=== PATIENT | male | born 1975 | race Caucasian/White ===

== ENCOUNTER 2017-02-22 21:10 | Emergency (ER) | payer MEDICAID ==
[2017-02-22] MEDS ORDERED: ZIPRASIDONE MESYLATE INJ/PF 20 MG SDV IM ONE (21:25)
[2017-02-22] MEDS ORDERED: DIPHENHYDRAMINE HCL 50 MG/ML VIAL IM ONE (21:26)
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
[2017-02-22] MEDS ORDERED: LORAZEPAM INJ 2 MG/1 ML VIAL ONE (21:44)
[2017-02-22 22:01] LABS: APPEARANCE,URINE CLEAR; BILIRUBIN,URINE NEGATIVE (NEGATIVE); GLUCOSE, URINE NEGATIVE (NEGATIVE); KETONES,URINE NEGATIVE (NEGATIVE); LEUKOCYTE ESTERASE,URINE NEGATIVE (NEGATIVE); NITRITE,URINE NEGATIVE (NEGATIVE); PROTEIN,URINE NEGATIVE (NEGATIVE); URINE SPECIFIC GRAVITY 1.002; UROBILINOGEN,URINE NEGATIVE mg/dL (<2.0)
[2017-02-22 22:19] LABS: URINE BARBITURATES SCREEN NEGATIVE; URINE METHADONE SCREEN NEGATIVE; URINE OPIATES LOW NEGATIVE; URINE PHENCYCLIDINE SCREEN NEGATIVE
[2017-02-22 22:40] LABS: ABSOLUTE EOSINOPHILS # (AUTO) 0.1 10^3/uL (0.0-0.6); ABSOLUTE LYMPHOCYTES (AUTO) 1.8 10^3/uL (0.5-4.7); ABSOLUTE MONOCYTES (AUTO) 0.8 10^3/uL (0.1-1.4); ABSOLUTE NEUT (AUTO) 4.2 10^3/uL (1.7-8.2); BASOPHILS % (AUTO) 0.6 % (0-2); EOSINOPHILS % (AUTO) 1.1 % (0-6); HEMATOCRIT 45.4 % (37.9-51.0); HEMOGLOBIN 15.8 g/dL (13.5-17.0); LYMPHOCYTES % (AUTO) 26.5 % (13-45); MEAN CORPUSCULAR HEMOGLOBIN 31.2 pg (27.0-33.4); MEAN CORPUSCULAR HGB CONC 34.8 g/dL (32.0-36.0); MEAN CORPUSCULAR VOLUME 90 fl (80-97); MONOCYTES % (AUTO) 10.8 % (3-13); RED BLOOD COUNT 5.06 10^6/uL (4.35-5.55); RED CELL DISTRIBUTION WIDTH 13.3 % (11.5-14.0)
[2017-02-22 22:54] LABS: ALANINE AMINOTRANSFERASE 35 U/L (21-72); ALBUMIN 4.8 g/dL (3.5-5.0); ALCOHOL 100 mg/dL (NONE DETECTED); ALKALINE PHOSPHATASE 72 U/L (38-126); ANION GAP 18 (5-19); ASPARTATE AMINO TRANSFERASE 32 U/L (17-59); BILIRUBIN,DIRECT 0.3 mg/dL (0.0-0.4); BILIRUBIN,TOTAL 0.8 mg/dL (0.2-1.3); BLOOD UREA NITROGEN 7 mg/dL (7-20); CALCIUM 9.7 mg/dL (8.4-10.2); CARBON DIOXIDE 21 mmol/L (22-30); CHLORIDE 108 mmol/L (98-107); CREATININE RESULT 0.78 mg/dL (0.52-1.25); GLUCOSE 88 mg/dL (75-110); POTASSIUM 3.6 mmol/L (3.6-5.0); SODIUM 147.2 mmol/L (137-145); TOTAL PROTEIN 7.8 g/dL (6.3-8.2)
--- NOTE | 2017-02-23 07:49 | EKG REPORT ---
SEVERITY:- BORDERLINE ECG - SINUS RHYTHM LEFT AXIS DEVIATION POOR R PROGRESSION ANTERIOR LEADS : Confirmed by: Juve Arteaga MD 23-Feb-2017 07:48:51
--- NOTE | 2017-02-23 10:43 | ER Document Report ---
Doctor's Note Notes: 02/23/17 10:43 As the rounding physician this AM, I assessed the patient's labs, vitals, and records. No concerning findings this morning. Patient denies any acute complaints. Patient is cleared for disposition by psychiatry
[2017-02-23] MEDS ORDERED: LORAZEPAM 1 MG TABLET PO ONE (12:33)
[2017-02-23] MEDS ORDERED: DIPHENHYDRAMINE HCL 50 MG/ML VIAL IM ONE (13:46)
[2017-02-23] MEDS ORDERED: HALOPERIDOL LACTATE INJ 5 MG/1 ML VIAL IM ONE (13:46)
[2017-02-23] MEDS ORDERED: LORAZEPAM INJ 2 MG/1 ML VIAL IM ONE (13:46)
[2017-02-23 16:12] VITALS: BP 109/85
== END 2017-02-23 18:41 | disposition home or self-care (01) ==
LOC: EEVIPCON 21:10 → ER 21:10
DX: F29 Unspecified psychosis not due to a substance or known physiological condition (principal); Z78.1 Physical restraint status; R45.1 Restlessness and agitation
CPT/HCPCS: 93005; 99284; 96372; 96374; 36415; 80307 ×4; 85025; 80053; 81001; 93010; J1200 ×2; J1630; J2060 ×2; J3486

== ENCOUNTER 2017-02-27 15:43 | Emergency (ER) | payer MEDICAID, OTHER ==
[2017-02-27] MEDS ORDERED: LORAZEPAM INJ 2 MG/1 ML VIAL IM ONE (16:17)
[2017-02-27 16:25] LABS: ABSOLUTE EOSINOPHILS # (AUTO) 0.1 10^3/uL (0.0-0.6); ABSOLUTE LYMPHOCYTES (AUTO) 2.2 10^3/uL (0.5-4.7); ABSOLUTE MONOCYTES (AUTO) 0.7 10^3/uL (0.1-1.4); ABSOLUTE NEUT (AUTO) 5.4 10^3/uL (1.7-8.2); BASOPHILS % (AUTO) 0.4 % (0-2); EOSINOPHILS % (AUTO) 1.4 % (0-6); HEMATOCRIT 45.6 % (37.9-51.0); HEMOGLOBIN 15.6 g/dL (13.5-17.0); HGB HCT DIFFERENCE 1.2; LYMPHOCYTES % (AUTO) 26.1 % (13-45); MEAN CORPUSCULAR HEMOGLOBIN 31.2 pg (27.0-33.4); MEAN CORPUSCULAR HGB CONC 34.2 g/dL (32.0-36.0); MEAN CORPUSCULAR VOLUME 91 fl (80-97); MONOCYTES % (AUTO) 7.9 % (3-13); RED BLOOD COUNT 5.01 10^6/uL (4.35-5.55); RED CELL DISTRIBUTION WIDTH 13.6 % (11.5-14.0); SEGMENTED NEUTROPHILS % (AUTO) 64.2 % (42-78); WHITE BLOOD COUNT 8.4 10^3/uL (4.0-10.5)
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
[2017-02-27 16:45] LABS: ALANINE AMINOTRANSFERASE 30 U/L (21-72); ALBUMIN 4.7 g/dL (3.5-5.0); ALCOHOL 170 mg/dL (NONE DETECTED); ALKALINE PHOSPHATASE 80 U/L (38-126); ANION GAP 17 (5-19); ASPARTATE AMINO TRANSFERASE 32 U/L (17-59); BILIRUBIN,DIRECT 0.5 mg/dL (0.0-0.4); BILIRUBIN,TOTAL 1.1 mg/dL (0.2-1.3); BLOOD UREA NITROGEN 11 mg/dL (7-20); CALCIUM 9.6 mg/dL (8.4-10.2); CARBON DIOXIDE 21 mmol/L (22-30); CHLORIDE 108 mmol/L (98-107); CREATININE RESULT 0.81 mg/dL (0.52-1.25); GLUCOSE 92 mg/dL (75-110); POTASSIUM 4.2 mmol/L (3.6-5.0); SODIUM 145.5 mmol/L (137-145); TOTAL PROTEIN 7.7 g/dL (6.3-8.2)
[2017-02-27 17:40] LABS: APPEARANCE,URINE CLEAR; BILIRUBIN,URINE NEGATIVE (NEGATIVE); GLUCOSE, URINE NEGATIVE (NEGATIVE); KETONES,URINE NEGATIVE (NEGATIVE); LEUKOCYTE ESTERASE,URINE NEGATIVE (NEGATIVE); NITRITE,URINE NEGATIVE (NEGATIVE); PROTEIN,URINE NEGATIVE (NEGATIVE); URINE SPECIFIC GRAVITY 1.008; UROBILINOGEN,URINE NEGATIVE mg/dL (<2.0)
[2017-02-27 17:57] LABS: URINE BARBITURATES SCREEN NEGATIVE; URINE METHADONE SCREEN NEGATIVE; URINE OPIATES LOW NEGATIVE; URINE PHENCYCLIDINE SCREEN NEGATIVE
[2017-02-27] MEDS ORDERED: (PENDING PHARMACY ID) (Naproxen [Naproxen] 500 MG) PO PRN (18:17)
[2017-02-27] MEDS ORDERED: NAPROXEN 250 MG TABLET PO PRN (18:25)
[2017-02-27] MEDS ORDERED: LORAZEPAM INJ 2 MG/1 ML VIAL IV ONE (18:43)
[2017-02-27] MEDS: GABAPENTIN 300 MG CAPSULE PO SCH (21:42)
[2017-02-27] MEDS: BENZTROPINE MESYLATE 1 MG TABLET PO SCH (21:42)
[2017-02-27] MEDS: LANSOPRAZOLE 15 MG TAB.RAP.DR PO SCH (21:43)
[2017-02-27] MEDS: FAMOTIDINE 20 MG TABLET PO SCH (21:43)
[2017-02-27] MEDS: CHLORPROMAZINE HCL 50 MG TABLET PO SCH (21:43)
[2017-02-27] MEDS ORDERED: (PENDING PHARMACY ID) (Ranitidine Hcl [Zantac 150 Mg Tablet] 150 MG) PO SCH (22:00)
--- NOTE | 2017-02-27 23:36 | EKG REPORT ---
SEVERITY:- ABNORMAL ECG - SINUS TACHYCARDIA LEFT ANTERIOR FASCICULAR BLOCK : Confirmed by: Torrie Campbell 27-Feb-2017 23:35:04
[2017-02-28] MEDS: CHLORPROMAZINE HCL 50 MG TABLET PO SCH ×3 (06:55→22:19)
[2017-02-28] MEDS: GABAPENTIN 300 MG CAPSULE PO SCH ×3 (06:55→22:19)
[2017-02-28] MEDS ORDERED: LAMOTRIGINE 100 MG TABLET PO SCH (10:00)
[2017-02-28] MEDS ORDERED: (PENDING PHARMACY ID) (Benztropine Mesylate [Benztropine Mesylate 2 Mg Tablet] 2 MG) PO SCH (10:00)
[2017-02-28] MEDS ORDERED: (PENDING PHARMACY ID) (Lamotrigine [Lamictal] 150 MG) PO SCH (10:00)
[2017-02-28] MEDS: FAMOTIDINE 20 MG TABLET PO SCH ×2 (11:09→22:19)
[2017-02-28] MEDS: LANSOPRAZOLE 15 MG TAB.RAP.DR PO SCH ×2 (11:09→22:18)
[2017-02-28] MEDS: BENZTROPINE MESYLATE 1 MG TABLET PO SCH ×2 (11:09→22:18)
--- NOTE | 2017-02-28 16:44 | PSYCHOLOGICAL NOTE ---
Psych Note - Psych Note Psych Note: 41-year-old male who presents by EMS secondary to altered mental status. Patient does have a history of seizures. Patient was recently seen and evaluated here secondary to possible psychosis and medication noncompliance and was discharged home with follow-up with the act team and [facility]. Patient is in restraints upon arrival secondary to combativeness. Patient does admit to drinking alcohol today. He denies any drug use. Patient does not remember the full events of today. Patient denies any headache, neck pain, chest pain, abdominal pain, nausea or vomiting. Patient believes "I think I had a seizure". Patient currently demonstrating that he is in an altered mental status and has been put into 4 point restraints. Mood is irritable with labile affect. Patient denies suicidal and homicidal ideation but states he needs medication or he will kill people. Patient denies auditory and visual hallucinations; patient is not demonstrating behaviour what would be congruent to responding to internal stimuli. Persecutory delusions are noted. Thought process is disorganized. Eye contact was fair. Intellectual abilities appear to be within average range. Attention and concentration is poor. Insight, judgment, and impulse control is poor. he was clinician notes that patient does get out of control but however when clinician reminds him to calm down for evaluation of be over he immediately complies. 298.9 (F29) Unspecified psychosis Impressions/plan: Patient is recommended to continue under IVC. Patient is demonstrating persecutory delusions and inability to control outbursts. Patient is currently in 4-point restraints. Patient will be reevaluated. Dr. Steel was consulted on the Management of this patient attending physician is in agreement with recommendations and disposition.
--- NOTE | 2017-02-28 16:54 | PSYCHOLOGICAL NOTE ---
Psych Note - Psych Note Psych Note: 41-year-old male who presents by EMS secondary to altered mental status. Patient does have a history of seizures. Patient was recently seen and evaluated here secondary to possible psychosis and medication noncompliance and was discharged home with follow-up with the act team and [facility]. Patient is in restraints upon arrival secondary to combativeness. Patient does admit to drinking alcohol today. He denies any drug use. Patient does not remember the full events of today. Patient denies any headache, neck pain, chest pain, abdominal pain, nausea or vomiting. Patient believes "I think I had a seizure". Patient is unwilling to engage with clinician and is verbally combative. Patient is irritable and states he wants to be discharged. Patient does have [facility] act team and had been off his psychiatric medications. Patient states that he has been working with [facility] to get housing and to get back into treatment. He disclosed he has been unable to get his medications because of appointment difficulties. clinician attempted to call [facility] act logistics team leader Guy left message Patient is alert and orientated to person, place, time and circumstance. Mood is irritable with labile affect. Patient denies suicidal and homicidal ideation. Patient denies auditory and visual hallucinations; patient is not demonstrating behaviour what would be congruent to responding to internal stimuli. No delusions are noted. Thought process is organized and linear. Eye contact was fair. Intellectual abilities appear to be within average range. Attention and concentration is fair. Insight, judgment, and impulse control is poor 298.9 (F29) Unspecified psychosis Impressions/plan: Patient is recommended for rescind of IVC is considered psychiatrically cleared for discharge. Patient does not meet IVC criteria per [place] GS 122C. Patient is no longer demonstrating being in an altered mental status. Patient is not verbalizing any delusions previously noted. Patient has been restarted on his psychiatric medications. Patient is having difficulty getting into see psychiatry through outpatient services however patient is set up with higher level of care through act team [facility]. Dr. Steel was consulted on the Management of this patient attending physician is in agreement with recommendations and disposition.
--- NOTE | 2017-02-28 18:22 | ER Document Report ---
Doctor's Note Notes: 02/28/17 18:21 [address] to go, will have a home tomorrow. Quite agitated by the idea of being discharged tonight as he has nowhere to live. This is increasing stress and causing him to become somewhat unstable again. I do not feel the patient will be safe for discharge this evening as he has no live in no way to fill his prescriptions until tomorrow morning. Patient will continue to be observed in the emergency department overnight and discharged tomorrow. I have written for 1 week refills on his medications.
[2017-03-01] MEDS: GABAPENTIN 300 MG CAPSULE PO SCH (06:00)
[2017-03-01] MEDS: CHLORPROMAZINE HCL 50 MG TABLET PO SCH (06:01)
[2017-03-01 08:33] VITALS: BP 128/81
== END 2017-03-01 08:25 | disposition home or self-care (01) ==
LOC: ER 15:43 → EEVIPCON 15:43 → ER 03-01 08:25
DX: R44.3 Hallucinations, unspecified (principal); R00.0 Tachycardia, unspecified; R45.1 Restlessness and agitation; R46.89 Other symptoms and signs involving appearance and behavior; F43.9 Reaction to severe stress, unspecified; I44.4 Left anterior fascicular block; Z88.8 Allergy status to other drugs, medicaments and biological substances
CPT/HCPCS: 93005; 99291; 96372; 36415; 80307 ×4; 85025; 80076; 80048; 81001; 93010; J3490 ×6; J2060

== ENCOUNTER 2017-03-01 19:41 | Emergency (ER) | payer OTHER, MEDICAID ==
[2017-03-01] MEDS ORDERED: HALOPERIDOL LACTATE INJ 5 MG/1 ML VIAL ONE ×2 (19:48→19:49)
[2017-03-01] MEDS ORDERED: LORAZEPAM INJ 2 MG/1 ML VIAL ONE (19:48)
[2017-03-01] MEDS ORDERED: HALOPERIDOL LACTATE INJ 5 MG/1 ML VIAL IM ONE (19:49)
[2017-03-01] MEDS ORDERED: LORAZEPAM INJ 2 MG/1 ML VIAL IM ONE (19:49)
[2017-03-01] MEDS ORDERED: DIPHENHYDRAMINE HCL 50 MG/ML VIAL IM ONE (19:49)
[2017-03-01] MEDS ORDERED: DIPHENHYDRAMINE HCL 50 MG/ML VIAL ONE (19:49)
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
[2017-03-01 21:24] LABS: ABSOLUTE EOSINOPHILS # (AUTO) 0.1 10^3/uL (0.0-0.6); ABSOLUTE LYMPHOCYTES (AUTO) 1.7 10^3/uL (0.5-4.7); ABSOLUTE MONOCYTES (AUTO) 0.6 10^3/uL (0.1-1.4); ABSOLUTE NEUT (AUTO) 3.4 10^3/uL (1.7-8.2); BASOPHILS % (AUTO) 0.4 % (0-2); EOSINOPHILS % (AUTO) 2.1 % (0-6); HEMATOCRIT 42.8 % (37.9-51.0); HEMOGLOBIN 14.6 g/dL (13.5-17.0); LYMPHOCYTES % (AUTO) 29.1 % (13-45); MEAN CORPUSCULAR HEMOGLOBIN 31.1 pg (27.0-33.4); MEAN CORPUSCULAR HGB CONC 34.1 g/dL (32.0-36.0); MEAN CORPUSCULAR VOLUME 91 fl (80-97); MONOCYTES % (AUTO) 10.1 % (3-13); RED BLOOD COUNT 4.69 10^6/uL (4.35-5.55); RED CELL DISTRIBUTION WIDTH 13.7 % (11.5-14.0); SEGMENTED NEUTROPHILS % (AUTO) 58.3 % (42-78); WHITE BLOOD COUNT 5.8 10^3/uL (4.0-10.5)
[2017-03-01 21:41] LABS: ALANINE AMINOTRANSFERASE 41 U/L (21-72); ALBUMIN 4.3 g/dL (3.5-5.0); ALCOHOL 111 mg/dL (NONE DETECTED); ALKALINE PHOSPHATASE 87 U/L (38-126); ANION GAP 14 (5-19); ASPARTATE AMINO TRANSFERASE 46 U/L (17-59); BILIRUBIN,DIRECT 0.4 mg/dL (0.0-0.4); BILIRUBIN,TOTAL 0.7 mg/dL (0.2-1.3); BLOOD UREA NITROGEN 11 mg/dL (7-20); CALCIUM 9.6 mg/dL (8.4-10.2); CARBON DIOXIDE 25 mmol/L (22-30); CHLORIDE 108 mmol/L (98-107); CREATININE RESULT 0.69 mg/dL (0.52-1.25); GLUCOSE 99 mg/dL (75-110); POTASSIUM 4.2 mmol/L (3.6-5.0); SODIUM 146.6 mmol/L (137-145); TOTAL PROTEIN 7.1 g/dL (6.3-8.2)
[2017-03-02 02:23] LABS: APPEARANCE,URINE CLEAR; BILIRUBIN,URINE NEGATIVE (NEGATIVE); GLUCOSE, URINE NEGATIVE (NEGATIVE); KETONES,URINE NEGATIVE (NEGATIVE); LEUKOCYTE ESTERASE,URINE NEGATIVE (NEGATIVE); NITRITE,URINE NEGATIVE (NEGATIVE); PROTEIN,URINE NEGATIVE (NEGATIVE); URINE SPECIFIC GRAVITY 1.012; UROBILINOGEN,URINE NEGATIVE mg/dL (<2.0)
[2017-03-02 02:25] LABS: URINE BARBITURATES SCREEN NEGATIVE; URINE METHADONE SCREEN NEGATIVE; URINE OPIATES LOW NEGATIVE; URINE PHENCYCLIDINE SCREEN NEGATIVE
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
--- NOTE | 2017-03-02 09:16 | ER Document Report ---
Doctor's Note Notes: 03/02/17 09:16 As the rounding physician for our psychiatric patients, I have reviewed the chart, vitals, lab work. Patient has been examined and noted to be stable at this time . Patient is cleared by mental health as well, he will follow-up with [facility] 03/02/17 09:18 After performing a Medical Screening Examination, I estimate there is LOW risk for any life threatening mental health issues. At this time the patient looks extremely well and has not attempted severe self harm. I have reevaluated this patient multiple times and no significant life threatening changes are noted. The patient and I have discussed the diagnosis and risks, and we agree with discharging home with close follow-up with the understanding that symptoms and presentations can change. We also discussed returning to the Emergency Department immediately if new or worsening symptoms occur. We have discussed the symptoms which are most concerning (hallucinations, thoughts or actions of self harm or harm to others) that necessitate immediate return.
[2017-03-02 09:31] VITALS: BP 113/80
--- NOTE | 2017-03-02 13:05 | EKG REPORT ---
SEVERITY:- ABNORMAL ECG - SINUS TACHYCARDIA LEFT ANTERIOR FASCICULAR BLOCK ABNRM R PROG, CONSIDER ASMI OR LEAD PLACEMENT : Confirmed by: Torrie Campbell 02-Mar-2017 13:05:01
== END 2017-03-02 09:30 | disposition home or self-care (01) ==
LOC: ER 19:41
DX: F10.129 Alcohol abuse with intoxication, unspecified (principal); R46.89 Other symptoms and signs involving appearance and behavior; R45.1 Restlessness and agitation; R45.850 Homicidal ideations; R00.0 Tachycardia, unspecified; Z88.8 Allergy status to other drugs, medicaments and biological substances; F17.200 Nicotine dependence, unspecified, uncomplicated; Z59.0 Homelessness; Z78.1 Physical restraint status
CPT/HCPCS: 93005; 99285; 96372; 36415; 80307 ×4; 85025; 80053; 81001; 93010; J1200; J1630; J2060

== ENCOUNTER 2017-03-05 13:02 | Emergency (ER) | payer MEDICAID ==
[2017-03-05 13:38] LABS: ABSOLUTE EOSINOPHILS # (AUTO) 0.1 10^3/uL (0.0-0.6); ABSOLUTE LYMPHOCYTES (AUTO) 1.8 10^3/uL (0.5-4.7); ABSOLUTE MONOCYTES (AUTO) 0.8 10^3/uL (0.1-1.4); ABSOLUTE NEUT (AUTO) 4.1 10^3/uL (1.7-8.2); BASOPHILS % (AUTO) 0.5 % (0-2); EOSINOPHILS % (AUTO) 1.8 % (0-6); HEMOGLOBIN 16.1 g/dL (13.5-17.0); HGB HCT DIFFERENCE 1.3; MEAN CORPUSCULAR HEMOGLOBIN 31.3 pg (27.0-33.4); MEAN CORPUSCULAR HGB CONC 34.3 g/dL (32.0-36.0); MEAN CORPUSCULAR VOLUME 91 fl (80-97); MONOCYTES % (AUTO) 11.2 % (3-13); RED BLOOD COUNT 5.16 10^6/uL (4.35-5.55); RED CELL DISTRIBUTION WIDTH 13.4 % (11.5-14.0); SEGMENTED NEUTROPHILS % (AUTO) 60.5 % (42-78); WHITE BLOOD COUNT 6.8 10^3/uL (4.0-10.5)
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
[2017-03-05 13:50] LABS: ALANINE AMINOTRANSFERASE 47 U/L (21-72); ALBUMIN 4.4 g/dL (3.5-5.0); ALCOHOL 189 mg/dL (NONE DETECTED); ALKALINE PHOSPHATASE 78 U/L (38-126); ANION GAP 17 (5-19); ASPARTATE AMINO TRANSFERASE 36 U/L (17-59); BILIRUBIN,DIRECT 0.3 mg/dL (0.0-0.4); BILIRUBIN,TOTAL 0.8 mg/dL (0.2-1.3); BLOOD UREA NITROGEN 6 mg/dL (7-20); CALCIUM 9.3 mg/dL (8.4-10.2); CARBON DIOXIDE 21 mmol/L (22-30); CHLORIDE 106 mmol/L (98-107); CREATININE RESULT 0.77 mg/dL (0.52-1.25); GLUCOSE 94 mg/dL (75-110); SODIUM 143.9 mmol/L (137-145); TOTAL PROTEIN 7.3 g/dL (6.3-8.2)
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
[2017-03-05 14:59] VITALS: BP 116/97
--- NOTE | 2017-03-05 22:12 | EKG REPORT ---
SEVERITY:- ABNORMAL ECG - SINUS RHYTHM BORDERLINE LEFT AXIS DEVIATION ABNRM R PROG, CONSIDER ASMI OR LEAD PLACEMENT : Confirmed by: Kimberly Oliver MD 05-Mar-2017 22:11:14
== END 2017-03-05 14:55 | disposition home or self-care (01) ==
LOC: ER 13:02
DX: T50.902A Poisoning by unspecified drugs, medicaments and biological substances, intentional self-harm, initial encounter (principal); F17.200 Nicotine dependence, unspecified, uncomplicated
CPT/HCPCS: 36415; 80053; 80307; 85025; 93005; 93010; 99284

== ENCOUNTER 2017-03-07 11:59 | Emergency (ER) | payer MEDICAID ==
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
[2017-03-07] MEDS ORDERED: LAMOTRIGINE 100 MG TABLET PO ONE (12:46)
[2017-03-07 13:04] VITALS: BP 117/87
== END 2017-03-07 13:06 | disposition home or self-care (01) ==
LOC: ER 11:59
DX: M25.512 Pain in left shoulder (principal); W22.01XA Walked into wall, initial encounter; Y92.149 Unspecified place in prison as the place of occurrence of the external cause; R56.9 Unspecified convulsions; Z88.8 Allergy status to other drugs, medicaments and biological substances
CPT/HCPCS: 99283

== ENCOUNTER 2017-04-12 12:45 | Emergency (ER) | payer MEDICAID, OTHER ==
[2017-04-12 13:00] VITALS: BP 132/80
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
[2017-04-12 14:02] LABS: ABSOLUTE EOSINOPHILS # (AUTO) 0.1 10^3/uL (0.0-0.6); ABSOLUTE LYMPHOCYTES (AUTO) 1.4 10^3/uL (0.5-4.7); ABSOLUTE MONOCYTES (AUTO) 0.8 10^3/uL (0.1-1.4); ABSOLUTE NEUT (AUTO) 4.8 10^3/uL (1.7-8.2); BASOPHILS % (AUTO) 0.6 % (0-2); EOSINOPHILS % (AUTO) 1.6 % (0-6); HEMATOCRIT 45.2 % (37.9-51.0); HEMOGLOBIN 15.7 g/dL (13.5-17.0); HGB HCT DIFFERENCE 1.9; LYMPHOCYTES % (AUTO) 19.4 % (13-45); MEAN CORPUSCULAR HEMOGLOBIN 30.5 pg (27.0-33.4); MEAN CORPUSCULAR HGB CONC 34.7 g/dL (32.0-36.0); MEAN CORPUSCULAR VOLUME 88 fl (80-97); MONOCYTES % (AUTO) 11.6 % (3-13); RED BLOOD COUNT 5.15 10^6/uL (4.35-5.55); RED CELL DISTRIBUTION WIDTH 12.2 % (11.5-14.0); SEGMENTED NEUTROPHILS % (AUTO) 66.8 % (42-78); WHITE BLOOD COUNT 7.1 10^3/uL (4.0-10.5)
[2017-04-12 14:12] LABS: APPEARANCE,URINE CLEAR; BILIRUBIN,URINE NEGATIVE (NEGATIVE); GLUCOSE, URINE NEGATIVE (NEGATIVE); KETONES,URINE NEGATIVE (NEGATIVE); PROTEIN,URINE NEGATIVE (NEGATIVE); URINE SPECIFIC GRAVITY 1.002; UROBILINOGEN,URINE NEGATIVE mg/dL (<2.0)
[2017-04-12 14:13] LABS: LEUKOCYTE ESTERASE,URINE NEGATIVE (NEGATIVE); NITRITE,URINE NEGATIVE (NEGATIVE)
[2017-04-12 14:16] LABS: RBC,URINE 0-1 /HPF; WBC,URINE NONE SEEN /HPF
[2017-04-12 14:25] LABS: ALANINE AMINOTRANSFERASE 40 U/L (21-72); ALBUMIN 4.7 g/dL (3.5-5.0); ALKALINE PHOSPHATASE 134 U/L (38-126); ANION GAP 14 (5-19); ASPARTATE AMINO TRANSFERASE 25 U/L (17-59); BILIRUBIN,DIRECT 0.3 mg/dL (0.0-0.4); BLOOD UREA NITROGEN 11 mg/dL (7-20); CALCIUM 9.7 mg/dL (8.4-10.2); CARBON DIOXIDE 24 mmol/L (22-30); CHLORIDE 99 mmol/L (98-107); CREATININE RESULT 0.81 mg/dL (0.52-1.25); GLUCOSE 118 mg/dL (75-110); POTASSIUM 3.6 mmol/L (3.6-5.0); SODIUM 137.4 mmol/L (137-145); TOTAL PROTEIN 7.8 g/dL (6.3-8.2)
[2017-04-12 14:25] LABS: URINE BARBITURATES SCREEN NEGATIVE; URINE METHADONE SCREEN NEGATIVE; URINE OPIATES LOW NEGATIVE; URINE PHENCYCLIDINE SCREEN NEGATIVE
[2017-04-12 14:33] LABS: ALCOHOL < 10 mg/dL (NONE DETECTED)
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
--- NOTE | 2017-04-13 17:31 | EKG REPORT ---
SEVERITY:- BORDERLINE ECG - SINUS TACHYCARDIA RIGHT AXIS DEVIATION BORDERLINE R WAVE PROGRESSION, ANTERIOR LEADS CONSIDER ASMI : Confirmed by: Torrie Campbell 13-Apr-2017 17:30:33
== END 2017-04-12 18:26 | disposition home or self-care (01) ==
LOC: ER 12:45
DX: F41.9 Anxiety disorder, unspecified (principal); F29 Unspecified psychosis not due to a substance or known physiological condition; R45.851 Suicidal ideations; F17.210 Nicotine dependence, cigarettes, uncomplicated; F32.9 Major depressive disorder, single episode, unspecified
CPT/HCPCS: 36415; 80053; 80307; 81001; 85025; 93005; 93010; 99284

== ENCOUNTER 2017-04-12 21:51 | Emergency (ER) | payer SELFPAY ==
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
[2017-04-12 23:40] LABS: ABSOLUTE BASOPHILS # (AUTO) 0.1 10^3/uL (0.0-0.2); ABSOLUTE EOSINOPHILS # (AUTO) 0.2 10^3/uL (0.0-0.6); ABSOLUTE LYMPHOCYTES (AUTO) 1.5 10^3/uL (0.5-4.7); ABSOLUTE MONOCYTES (AUTO) 0.8 10^3/uL (0.1-1.4); ABSOLUTE NEUT (AUTO) 2.8 10^3/uL (1.7-8.2); EOSINOPHILS % (AUTO) 3.2 % (0-6); HEMOGLOBIN 14.9 g/dL (13.5-17.0); HGB HCT DIFFERENCE 1.7; LYMPHOCYTES % (AUTO) 28.9 % (13-45); MEAN CORPUSCULAR HEMOGLOBIN 30.6 pg (27.0-33.4); MEAN CORPUSCULAR HGB CONC 34.8 g/dL (32.0-36.0); MEAN CORPUSCULAR VOLUME 88 fl (80-97); MONOCYTES % (AUTO) 14.4 % (3-13); RED BLOOD COUNT 4.89 10^6/uL (4.35-5.55); RED CELL DISTRIBUTION WIDTH 12.2 % (11.5-14.0); SEGMENTED NEUTROPHILS % (AUTO) 52.5 % (42-78); WHITE BLOOD COUNT 5.3 10^3/uL (4.0-10.5)
[2017-04-12 23:57] LABS: ALANINE AMINOTRANSFERASE 32 U/L (21-72); ALBUMIN 4.3 g/dL (3.5-5.0); ALKALINE PHOSPHATASE 119 U/L (38-126); ANION GAP 12 (5-19); ASPARTATE AMINO TRANSFERASE 23 U/L (17-59); BILIRUBIN,DIRECT 0.3 mg/dL (0.0-0.4); BILIRUBIN,TOTAL 0.6 mg/dL (0.2-1.3); BLOOD UREA NITROGEN 15 mg/dL (7-20); CARBON DIOXIDE 26 mmol/L (22-30); CHLORIDE 104 mmol/L (98-107); CREATININE RESULT 0.99 mg/dL (0.52-1.25); GLUCOSE 105 mg/dL (75-110); POTASSIUM 3.7 mmol/L (3.6-5.0); SODIUM 142.3 mmol/L (137-145); TOTAL PROTEIN 7.3 g/dL (6.3-8.2)
[2017-04-13 00:01] LABS: ALCOHOL < 10 mg/dL (NONE DETECTED)
[2017-04-13 00:02] LABS: URINE BARBITURATES SCREEN NEGATIVE; URINE METHADONE SCREEN NEGATIVE; URINE OPIATES LOW NEGATIVE; URINE PHENCYCLIDINE SCREEN NEGATIVE
[2017-04-13 00:08] LABS: APPEARANCE,URINE CLEAR; BILIRUBIN,URINE NEGATIVE (NEGATIVE); GLUCOSE, URINE NEGATIVE (NEGATIVE); KETONES,URINE NEGATIVE (NEGATIVE); LEUKOCYTE ESTERASE,URINE NEGATIVE (NEGATIVE); NITRITE,URINE NEGATIVE (NEGATIVE); PROTEIN,URINE NEGATIVE (NEGATIVE); URINE SPECIFIC GRAVITY 1.025; UROBILINOGEN,URINE NEGATIVE mg/dL (<2.0)
[2017-04-13 00:37] LABS: BACTERIA,URINE TRACE /HPF
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
[2017-04-13 10:10] VITALS: BP 108/70
--- NOTE | 2017-04-13 17:30 | EKG REPORT ---
SEVERITY:- ABNORMAL ECG - INCOMPLETE ANALYSIS DUE TO MISSING DATA IN PRECORDIAL LEAD V4 SINUS RHYTHM BORDERLINE LEFT AXIS DEVIATION CONSIDER ANTEROSEPTAL INFARCT : Confirmed by: Torrie Campbell 13-Apr-2017 17:30:02
== END 2017-04-13 10:08 | disposition home or self-care (01) ==
LOC: ER 21:51
DX: F60.2 Antisocial personality disorder (principal); T50.902A Poisoning by unspecified drugs, medicaments and biological substances, intentional self-harm, initial encounter; R45.851 Suicidal ideations; Z59.0 Homelessness; F17.200 Nicotine dependence, unspecified, uncomplicated
CPT/HCPCS: 36415; 80053; 80307; 81001; 85025; 93005; 93010; 99285

== ENCOUNTER 2017-04-14 15:38 | Emergency (ER) | payer SELFPAY | END 2017-04-14 16:05 | disposition left against medical advice (07) | LOC: ER 15:38 | DX: Z53.21 Procedure and treatment not carried out due to patient leaving prior to being seen by health care provider (principal) ==

== ENCOUNTER 2017-06-12 16:00 | Emergency (ER) | payer MEDICAID ==
--- NOTE | 2017-06-12 17:34 | RADIOLOGY REPORT (SQ) ---
EXAM DESCRIPTION: CHEST SINGLE VIEW COMPLETED DATE/TIME: 06/12/2017 5:05 pm REASON FOR STUDY: cough COMPARISON: None. EXAM PARAMETERS: NUMBER OF VIEWS: One view. TECHNIQUE: Single frontal radiographic view of the chest acquired. RADIATION DOSE: NA LIMITATIONS: None. FINDINGS: LUNGS AND PLEURA: COPD. No opacities, masses or pneumothorax. No pleural effusion. MEDIASTINUM AND HILAR STRUCTURES: No masses. Contour normal. HEART AND VASCULAR STRUCTURES: Heart normal in size. Normal vasculature. BONES: No acute findings. HARDWARE: None in the chest. OTHER: No other significant finding. IMPRESSION: COPD without evidence of acute cardiopulmonary disease. TECHNICAL DOCUMENTATION: JOB ID: [id number]
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
[2017-06-12] MEDS ORDERED: CARBAMAZEPINE 100 MG TAB.CHEW PO ONE (18:02)
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
[2017-06-12] MEDS ORDERED: OLANZAPINE 5 MG TABLET PO ONE (18:03)
[2017-06-12 18:44] VITALS: BP 122/93
== END 2017-06-12 18:30 | disposition home or self-care (01) ==
LOC: ER 16:00
DX: F31.9 Bipolar disorder, unspecified (principal); T42.1X6A Underdosing of iminostilbenes, initial encounter; T43.596A Underdosing of other antipsychotics and neuroleptics, initial encounter; Z91.14 Patient's other noncompliance with medication regimen; R56.9 Unspecified convulsions; R05 Cough; F17.210 Nicotine dependence, cigarettes, uncomplicated; Z88.8 Allergy status to other drugs, medicaments and biological substances
CPT/HCPCS: 99285; 82962; 71010; J3490 ×2

== ENCOUNTER 2017-09-20 21:42 | Emergency (ER) | payer MEDICAID, OTHER ==
[2017-09-20 21:47] VITALS: BP 114/70
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
== END 2017-09-20 22:06 | disposition home or self-care (01) ==
LOC: ER 21:42
DX: R56.9 Unspecified convulsions (principal); F17.200 Nicotine dependence, unspecified, uncomplicated; Z71.6 Tobacco abuse counseling; Z79.899 Other long term (current) drug therapy
CPT/HCPCS: 99284

== ENCOUNTER 2017-12-19 11:14 | Emergency (ER) | payer MEDICAID ==
[2017-12-19] MEDS ORDERED: LORAZEPAM INJ 2 MG/1 ML VIAL IV ONE (11:19)
[2017-12-19] MEDS ORDERED: NORMAL SALINE 1000 ML 1,000 ML IV ONE (11:20)
[2017-12-19] MEDS ORDERED: ONDANSETRON HCL INJ/PF 4 MG/2 ML SDV IV ONE (11:25)
[2017-12-19] MEDS ORDERED: LAMOTRIGINE 100 MG TABLET PO ONE (11:25)
[2017-12-19 11:44] LABS: ABSOLUTE BASOPHILS # (AUTO) 0.1 10^3/uL (0.0-0.2); ABSOLUTE LYMPHOCYTES (AUTO) 1.5 10^3/uL (0.5-4.7); ABSOLUTE NEUT (AUTO) 8.8 10^3/uL (1.7-8.2); BASOPHILS % (AUTO) 0.6 % (0-2); EOSINOPHILS % (AUTO) 0.3 % (0-6); HEMATOCRIT 47.2 % (37.9-51.0); HEMOGLOBIN 16.6 g/dL (13.5-17.0); LYMPHOCYTES % (AUTO) 13.3 % (13-45); MEAN CORPUSCULAR HEMOGLOBIN 31.2 pg (27.0-33.4); MEAN CORPUSCULAR HGB CONC 35.1 g/dL (32.0-36.0); MEAN CORPUSCULAR VOLUME 89 fl (80-97); MONOCYTES % (AUTO) 9.1 % (3-13); PLATELET COUNT 299 10^3/uL (150-450); RED BLOOD COUNT 5.31 10^6/uL (4.35-5.55); RED CELL DISTRIBUTION WIDTH 13.6 % (11.5-14.0); SEGMENTED NEUTROPHILS % (AUTO) 76.7 % (42-78); TOTAL CELLS COUNTED % (AUTO) 100 %; WHITE BLOOD COUNT 11.4 10^3/uL (4.0-10.5)
[2017-12-19 12:11] LABS: ALANINE AMINOTRANSFERASE 43 U/L (21-72); ALBUMIN 4.7 g/dL (3.5-5.0); ALKALINE PHOSPHATASE 111 U/L (38-126); ANION GAP 14 (5-19); ASPARTATE AMINO TRANSFERASE 38 U/L (17-59); BILIRUBIN,DIRECT 0.4 mg/dL (0.0-0.4); BILIRUBIN,TOTAL 1.3 mg/dL (0.2-1.3); BLOOD UREA NITROGEN 9 mg/dL (7-20); CALCIUM 9.6 mg/dL (8.4-10.2); CARBON DIOXIDE 22 mmol/L (22-30); CHLORIDE 102 mmol/L (98-107); GLUCOSE 100 mg/dL (75-110); POTASSIUM 4.2 mmol/L (3.6-5.0); SODIUM 138.1 mmol/L (137-145); TOTAL PROTEIN 7.9 g/dL (6.3-8.2)
[2017-12-19 12:26] LABS: APPEARANCE,URINE SLIGHTLY-CLOUDY; BILIRUBIN,URINE SMALL (NEGATIVE); CALCIUM OXALATE CRYSTALS,URINE FEW /HPF; COLOR,URINE AMBER; GLUCOSE, URINE NEGATIVE (NEGATIVE); KETONES,URINE 20 mg/dL (NEGATIVE); LEUKOCYTE ESTERASE,URINE NEGATIVE (NEGATIVE); NITRITE,URINE NEGATIVE (NEGATIVE); PROTEIN,URINE 100 mg/dL (NEGATIVE); URINE SPECIFIC GRAVITY 1.033
[2017-12-19 12:35] LABS: URINE AMPHETAMINES SCREEN NEGATIVE; URINE BARBITURATES SCREEN NEGATIVE; URINE BENZODIAZEPINES SCREEN NEGATIVE; URINE COCAINE SCREEN UNCONFIRMED POSITIVE; URINE MARIJUANA (THC) SCREEN UNCONFIRMED POSITIVE; URINE METHADONE SCREEN NEGATIVE; URINE PHENCYCLIDINE SCREEN NEGATIVE
--- NOTE | 2017-12-19 15:25 | RADIOLOGY REPORT (SQ) ---
EXAM DESCRIPTION: CT ABD/PELVIS WITH IV ORAL COMPLETED DATE/TIME: 12/19/2017 2:54 pm REASON FOR STUDY: abd pain, hx surgeries abd, can't keep down fluid History colon and nd GI tract surgery COMPARISON: None. TECHNIQUE: CT scan of the abdomen and pelvis performed using helical scanning technique with dynamic intravenous contrast injection. No oral contrast. Images reviewed with lung, soft tissue, and bone windows. Reconstructed coronal and sagittal MPR images reviewed. Delayed images for evaluation of the urinary system also acquired. All images stored on PACS. All CT scanners at this facility use dose modulation, iterative reconstruction, and/or weight based d osing when appropriate to reduce radiation dose to as low as reasonably achievable (ALARA). [facility]: Dose Right [facility]: CareDose [facility]: Dose Right [facility]: Teradose 4D [facility]: Ready Solar CONTRAST TYPE AND DOSE: contrast/concentration: Isovue 370.00 mg/ml; Total Contrast Delivered: 100.0 ml; Total Saline Delivered: 70.0 ml 100 mL Isovue intravenously RENAL FUNCTION: Creatinine 0.82 RADIATION DOSE: CT Rad equipment meets quality standard of care and radiation dose reduction techniq ues were employed. CTDIvol: 10.6 - 12.5 mGy. DLP: 1257 mGy-cm.. LIMITATIONS: None. FINDINGS: LOWER CHEST: No significant findings. No nodules or infiltrates. LIVER: Normal size. No masses. No dilated ducts. SPLEEN: Normal size. No focal lesions. PANCREAS: No masses. No significant calcifications. No adjacent inflammation or peripancreatic fluid collections. Pancreatic duct not dilated. GALLBLADDER: No identified stones by CT criteria. No inflammatory changes to suggest cholecystitis. ADRENAL GLANDS: No significant masses or asymmetry. RIGHT KIDNEY AND URETER: No solid masses. No significant calcifications. No hydronephrosis or hyd roureter. LEFT KIDNEY AND URETER: 5.4 cm cyst. Tiny nonobstructing stone. No hydronephrosis or hydroureter. AORTA AND VESSELS: No AAA. RETROPERITONEUM: No retroperitoneal adenopathy, hemorrhage or masses. BOWEL AND PERITONEAL CAVITY: Nonobstructive appearance. Contrast is within colon. No small bowel di latation or free air or inflammatory change. No gastric distention. APPENDIX: Not visualized. PELVIS: No mass. No free fluid. Normal bladder. ABDOMINAL WALL: No masses. No hernias. BONES: 3 cm metal foreign body ischium on the right. OTHER: No other significant finding. IMPRESSION: Nothing acute. Nonobstructive bowel pattern. COMMENT: 3 cm metallic foreign body identified of the ischium on the right. Tiny nonobstructing sto ne left kidney. TECHNICAL DOCUMENTATION: JOB ID: [id number] Quality ID # [id number]: Final reports with documentation of one or more dose reduction techniques (e.g., Au tomated exposure control, adjustment of the mA and/or kV according to patient size, use of iterative reconstruction technique) 2010 [employer]- All Rights Reserved Reading location - IP/workstation name: [email or web address]
[2017-12-19 16:17] VITALS: BP 142/88
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
== END 2017-12-19 16:42 | disposition home or self-care (01) ==
LOC: ER 11:14
DX: G40.909 Epilepsy, unspecified, not intractable, without status epilepticus (principal); T42.6X6A Underdosing of other antiepileptic and sedative-hypnotic drugs, initial encounter; Z91.120 Patient's intentional underdosing of medication regimen due to financial hardship; R10.84 Generalized abdominal pain; R19.4 Change in bowel habit; F17.200 Nicotine dependence, unspecified, uncomplicated; Z98.890 Other specified postprocedural states; Z87.828 Personal history of other (healed) physical injury and trauma; Z88.8 Allergy status to other drugs, medicaments and biological substances
CPT/HCPCS: 99284; 96361; 96374; 96375; 36415; 85025; 80053; 81001; 80307; 74177; J2060; J2405; J7030; J3490

== ENCOUNTER 2018-05-21 01:04 | Inpatient (IN) | payer MEDICAID ==
[2018-05-21] MEDS ORDERED: NORMAL SALINE 1000 ML 1,000 ML IV ONE (01:26)
[2018-05-21] MEDS ORDERED: LORAZEPAM INJ 2 MG/1 ML VIAL IV ONE (01:27)
[2018-05-21] MEDS ORDERED: ONDANSETRON HCL INJ/PF 4 MG/2 ML SDV IV ONE (01:27)
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
[2018-05-21 02:08] LABS: ABSOLUTE LYMPHOCYTES (AUTO) 1.2 10^3/uL (0.5-4.7); ABSOLUTE MONOCYTES (AUTO) 1.5 10^3/uL (0.1-1.4); ABSOLUTE NEUT (AUTO) 10.7 10^3/uL (1.7-8.2); BASOPHILS % (AUTO) 0.2 % (0-2); HEMATOCRIT 53.6 % (37.9-51.0); HEMOGLOBIN 19.1 g/dL (13.5-17.0); LYMPHOCYTES % (AUTO) 8.6 % (13-45); MEAN CORPUSCULAR HEMOGLOBIN 32.1 pg (27.0-33.4); MEAN CORPUSCULAR HGB CONC 35.7 g/dL (32.0-36.0); MEAN CORPUSCULAR VOLUME 90 fl (80-97); MONOCYTES % (AUTO) 11.1 % (3-13); PLATELET COUNT 273 10^3/uL (150-450); RED BLOOD COUNT 5.96 10^6/uL (4.35-5.55); RED CELL DISTRIBUTION WIDTH 13.4 % (11.5-14.0); SEGMENTED NEUTROPHILS % (AUTO) 80.1 % (42-78); TOTAL CELLS COUNTED % (AUTO) 100 %; WHITE BLOOD COUNT 13.4 10^3/uL (4.0-10.5)
[2018-05-21 02:19] LABS: ALANINE AMINOTRANSFERASE 60 U/L (21-72); ALCOHOL 230 mg/dL (NONE DETECTED); ALKALINE PHOSPHATASE 97 U/L (38-126); ASPARTATE AMINO TRANSFERASE 62 U/L (17-59); BILIRUBIN,DIRECT 0.4 mg/dL (0.0-0.4); BILIRUBIN,TOTAL 1.3 mg/dL (0.2-1.3); BLOOD UREA NITROGEN 4 mg/dL (7-20); CALCIUM 8.3 mg/dL (8.4-10.2); CARBON DIOXIDE 23 mmol/L (22-30); CHLORIDE 87 mmol/L (98-107); GLUCOSE 128 mg/dL (75-110); LIPASE 52.5 U/L (23-300); POTASSIUM 3.6 mmol/L (3.6-5.0); TOTAL PROTEIN 6.8 g/dL (6.3-8.2)
[2018-05-21] MEDS ORDERED: PANTOPRAZOLE SODIUM 40 MG VIAL IV ONE (02:22)
[2018-05-21] MEDS ORDERED: PANTOPRAZOLE SODIUM 40 MG VIAL IV PRN (02:22)
[2018-05-21 02:23] LABS: SODIUM 138.7 mmol/L (137-145)
[2018-05-21 02:28] LABS: ANION GAP 29 (5-19)
--- NOTE | 2018-05-21 02:49 | RADIOLOGY REPORT (SQ) ---
EXAM DESCRIPTION: XR CHEST 1 VIEW COMPLETED DATE/TME: 05/21/2018 01:25 CLINICAL HISTORY: 42 years, Male, persistent retching COMPARISON: 06/12/2017 NUMBER OF VIEWS: One TECHNIQUE: AP view of the chest LIMITATIONS: None. FINDINGS: The lungs are clear. The heart is normal in size. There is no pneumothorax or pleural effusion. Old healed fracture of the distal right clavicle is noted IMPRESSION: No acute cardiopulmonary abnormality 2010 [employer]- All Rights Reserved
[2018-05-21] MEDS ORDERED: METOCLOPRAMIDE HCL INJ/PF 10 MG/2 ML SDV IV ONE (02:55)
[2018-05-21] MEDS ORDERED: THIAMINE HCL 100 MG, FOLIC ACID 1 MG in NORMAL SALINE 250 ML IV ONE ×2 (02:55→03:45)
[2018-05-21] MEDS ORDERED: DEXTROSE 40% GEL 15 GM TUBE PO PRN (03:17)
[2018-05-21] MEDS ORDERED: GLUCAGON,HUMAN RECOMB 1 MG INJ SUBCUT PRN (03:17)
[2018-05-21] MEDS ORDERED: DEXTROSE 50%-WATER 25 GM/50 ML DISP.SYRIN IV PRN ×2 (03:17)
[2018-05-21] MEDS ORDERED: LORAZEPAM INJ 2 MG/1 ML VIAL IV PRN (03:30)
[2018-05-21] MEDS ORDERED: THIAMINE HCL INJ 200 MG/2 ML VIAL ONE (03:41)
[2018-05-21] MEDS ORDERED: FOLIC ACID INJ 5 MG/1 ML 10 ML VIAL ONE (03:42)
[2018-05-21 04:01] LABS: URINE AMPHETAMINES SCREEN NEGATIVE; URINE BARBITURATES SCREEN NEGATIVE; URINE BENZODIAZEPINES SCREEN NEGATIVE; URINE COCAINE SCREEN NEGATIVE; URINE MARIJUANA (THC) SCREEN UNCONFIRMED POSITIVE; URINE METHADONE SCREEN NEGATIVE; URINE PHENCYCLIDINE SCREEN NEGATIVE
[2018-05-21] MEDS: ONDANSETRON HCL INJ/PF 4 MG/2 ML SDV IV PRN ×3 (05:08→18:12)
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
[2018-05-21 08:43] LABS: ABSOLUTE MONOCYTES (AUTO) 1.5 10^3/uL (0.1-1.4); ABSOLUTE NEUT (AUTO) 9.5 10^3/uL (1.7-8.2); BASOPHILS % (AUTO) 0.1 % (0-2); HEMATOCRIT 49.4 % (37.9-51.0); HEMOGLOBIN 17.4 g/dL (13.5-17.0); LYMPHOCYTES % (AUTO) 8.4 % (13-45); MEAN CORPUSCULAR HEMOGLOBIN 31.8 pg (27.0-33.4); MEAN CORPUSCULAR HGB CONC 35.3 g/dL (32.0-36.0); MEAN CORPUSCULAR VOLUME 90 fl (80-97); MONOCYTES % (AUTO) 12.5 % (3-13); PLATELET COUNT 218 10^3/uL (150-450); RED BLOOD COUNT 5.49 10^6/uL (4.35-5.55); RED CELL DISTRIBUTION WIDTH 13.3 % (11.5-14.0); TOTAL CELLS COUNTED % (AUTO) 100 %
[2018-05-21] MEDS: MORPHINE SULFATE 10 MG/ML INJ IV PRN ×4 (09:38→21:26)
[2018-05-21] MEDS: NORMAL SALINE 100 ML with PANTOPRAZOLE SODIUM 80 MG IV PRN ×4 (09:41→20:40)
[2018-05-21] MEDS: PROMETHAZINE HCL INJ 25 MG/1 ML VIAL IV PRN ×3 (09:44→20:01)
[2018-05-21] MEDS: LORAZEPAM INJ 2 MG/1 ML VIAL IV PRN ×3 (13:27→21:26)
[2018-05-21 14:16] LABS: ABSOLUTE LYMPHOCYTES (AUTO) 0.7 10^3/uL (0.5-4.7); ABSOLUTE MONOCYTES (AUTO) 1.3 10^3/uL (0.1-1.4); ABSOLUTE NEUT (AUTO) 8.1 10^3/uL (1.7-8.2); BASOPHILS % (AUTO) 0.2 % (0-2); HEMATOCRIT 48.6 % (37.9-51.0); HEMOGLOBIN 17.1 g/dL (13.5-17.0); LYMPHOCYTES % (AUTO) 7.3 % (13-45); MEAN CORPUSCULAR HEMOGLOBIN 31.7 pg (27.0-33.4); MEAN CORPUSCULAR HGB CONC 35.1 g/dL (32.0-36.0); MEAN CORPUSCULAR VOLUME 90 fl (80-97); MONOCYTES % (AUTO) 12.5 % (3-13); PLATELET COUNT 180 10^3/uL (150-450); RED BLOOD COUNT 5.39 10^6/uL (4.35-5.55); RED CELL DISTRIBUTION WIDTH 13.5 % (11.5-14.0); TOTAL CELLS COUNTED % (AUTO) 100 %; WHITE BLOOD COUNT 10.2 10^3/uL (4.0-10.5)
[2018-05-21] MEDS: DEXTROSE 5%-NORMAL SALINE 1,000 ML IV PRN (16:09)
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
[2018-05-21 19:56] LABS: ABSOLUTE LYMPHOCYTES (AUTO) 0.9 10^3/uL (0.5-4.7); ABSOLUTE MONOCYTES (AUTO) 1.2 10^3/uL (0.1-1.4); ABSOLUTE NEUT (AUTO) 8.7 10^3/uL (1.7-8.2); BASOPHILS % (AUTO) 0.2 % (0-2); HEMATOCRIT 47.8 % (37.9-51.0); HEMOGLOBIN 16.9 g/dL (13.5-17.0); LYMPHOCYTES % (AUTO) 8.6 % (13-45); MEAN CORPUSCULAR HGB CONC 35.3 g/dL (32.0-36.0); MEAN CORPUSCULAR VOLUME 91 fl (80-97); MONOCYTES % (AUTO) 11.1 % (3-13); PLATELET COUNT 167 10^3/uL (150-450); RED BLOOD COUNT 5.27 10^6/uL (4.35-5.55); RED CELL DISTRIBUTION WIDTH 13.6 % (11.5-14.0); SEGMENTED NEUTROPHILS % (AUTO) 80.1 % (42-78); TOTAL CELLS COUNTED % (AUTO) 100 %; WHITE BLOOD COUNT 10.8 10^3/uL (4.0-10.5)
--- NOTE | 2018-05-21 21:24 | EKG REPORT ---
SEVERITY:- ABNORMAL ECG - SINUS TACHYCARDIA PROBABLE LEFT ATRIAL ABNORMALITY MARKEDLY POSTERIOR QRS AXIS CONSIDER ANTEROSEPTAL INFARCT : Confirmed by: Torrie Campbell 21-May-2018 21:23:40
[2018-05-21] MEDS: NORMAL SALINE 1000 ML 1,000 ML with POTASSIUM CHLORIDE 20 MEQ, MAGNESIUM SULFATE 8 MEQ,... IV SCH ×5 (21:35)
[2018-05-22] MEDS: LORAZEPAM INJ 2 MG/1 ML VIAL IV PRN ×4 (02:46→16:54)
[2018-05-22] MEDS: MORPHINE SULFATE 10 MG/ML INJ IV PRN ×4 (02:46→12:37)
[2018-05-22] MEDS: ONDANSETRON HCL INJ/PF 4 MG/2 ML SDV IV PRN (02:47)
[2018-05-22 04:43] LABS: HEMATOCRIT 47.2 % (37.9-51.0); HEMOGLOBIN 16.6 g/dL (13.5-17.0); MEAN CORPUSCULAR HEMOGLOBIN 32.2 pg (27.0-33.4); MEAN CORPUSCULAR HGB CONC 35.1 g/dL (32.0-36.0); MEAN CORPUSCULAR VOLUME 92 fl (80-97); PLATELET COUNT 149 10^3/uL (150-450); RED BLOOD COUNT 5.14 10^6/uL (4.35-5.55); RED CELL DISTRIBUTION WIDTH 13.4 % (11.5-14.0); WHITE BLOOD COUNT 8.6 10^3/uL (4.0-10.5)
[2018-05-22 05:08] LABS: ALANINE AMINOTRANSFERASE 50 U/L (21-72); ALBUMIN 3.3 g/dL (3.5-5.0); ALKALINE PHOSPHATASE 99 U/L (38-126); AMYLASE 34 U/L (30-110); ANION GAP 11 (5-19); ASPARTATE AMINO TRANSFERASE 41 U/L (17-59); BILIRUBIN,DIRECT 0.4 mg/dL (0.0-0.4); BILIRUBIN,TOTAL 2.7 mg/dL (0.2-1.3); BLOOD UREA NITROGEN 7 mg/dL (7-20); CALCIUM 8.5 mg/dL (8.4-10.2); CARBON DIOXIDE 27 mmol/L (22-30); CHLORIDE 100 mmol/L (98-107); GLUCOSE 110 mg/dL (75-110); LIPASE 77.8 U/L (23-300); POTASSIUM 3.5 mmol/L (3.6-5.0); SODIUM 138.1 mmol/L (137-145); TOTAL PROTEIN 6.1 g/dL (6.3-8.2)
[2018-05-22] MEDS: PROMETHAZINE HCL INJ 25 MG/1 ML VIAL IV PRN ×3 (06:22→16:15)
[2018-05-22] MEDS: NORMAL SALINE 100 ML with PANTOPRAZOLE SODIUM 80 MG IV PRN ×4 (06:31→18:19)
[2018-05-22] MEDS: DEXTROSE 5%-NORMAL SALINE 1,000 ML IV PRN (07:59)
[2018-05-22] MEDS: DIAZEPAM 5 MG TABLET PO SCH ×3 (11:13→20:24)
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
[2018-05-22 14:24] LABS: HEMATOCRIT 46.3 % (37.9-51.0); HEMOGLOBIN 16.5 g/dL (13.5-17.0); MEAN CORPUSCULAR HEMOGLOBIN 32.5 pg (27.0-33.4); MEAN CORPUSCULAR HGB CONC 35.7 g/dL (32.0-36.0); MEAN CORPUSCULAR VOLUME 91 fl (80-97); PLATELET COUNT 134 10^3/uL (150-450); RED BLOOD COUNT 5.08 10^6/uL (4.35-5.55); RED CELL DISTRIBUTION WIDTH 13.4 % (11.5-14.0); WHITE BLOOD COUNT 6.3 10^3/uL (4.0-10.5)
[2018-05-22] MEDS ORDERED: ONDANSETRON HCL INJ/PF 4 MG/2 ML SDV IV PRN (15:00)
[2018-05-22] MEDS ORDERED: MORPHINE SULFATE 10 MG/ML INJ IV PRN (15:24)
--- NOTE | 2018-05-22 15:31 | RADIOLOGY REPORT (SQ) ---
EXAM DESCRIPTION: CT ABD/PELVIS WITH IV ORAL COMPLETED DATE/TIME: 05/22/2018 2:59 pm REASON FOR STUDY: abdominal pain, N/V, elevated LFTs COMPARISON: 12/19/2017 CT abdomen pelvis TECHNIQUE: CT scan of the abdomen and pelvis performed using helical scanning technique with dynamic intravenous contrast injection. Patient drank oral contrast. Images reviewed with lung, soft tissue , and bone windows. Reconstructed coronal and sagittal MPR images reviewed. Delayed images for evalua tion of the urinary system also acquired. All images stored on PACS. All CT scanners at this facility use dose modulation, iterative reconstruction, and/or weight based d osing when appropriate to reduce radiation dose to as low as reasonably achievable (ALARA). [facility]: Dose Right [facility]: CareDose [facility]: Dose Right [facility]: Teradose 4D [facility]: ResiModel CONTRAST TYPE AND DOSE: contrast/concentration: Isovue 370.00 mg/ml; Total Contrast Delivered: 100.0 ml; Total Saline Delivered: 72.0 ml RENAL FUNCTION: Creatinine 0.74 RADIATION DOSE: CT Rad equipment meets quality standard of care and radiation dose reduction techniq ues were employed. CTDIvol: 9.3 - 10.9 mGy. DLP: 1205 mGy-cm.. LIMITATIONS: None. FINDINGS: LOWER CHEST: Large retrocardiac hiatal hernia. Lung bases are clear LIVER: Diffuse marked decreased attenuation from diffuse fatty infiltration. No focal masses. Aruna l size liver. SPLEEN: Normal size. No focal lesions. PANCREAS: No masses. No significant calcifications. No adjacent inflammation or peripancreatic fluid collections. Pancreatic duct not dilated. GALLBLADDER: No identified stones by CT criteria. No inflammatory changes to suggest cholecystitis. ADRENAL GLANDS: No significant masses or asymmetry. RIGHT KIDNEY AND URETER: No solid masses. No significant calcifications. No hydronephrosis or hyd roureter. LEFT KIDNEY AND URETER: No solid masses. 6.5 cm cyst left upper pole kidney with benign thin periphe ral rim calcification unchanged. No significant calcifications. No hydronephrosis or hydroureter. AORTA AND VESSELS: No aneurysm. No dissection. Renal arteries, SMA, celiac without stenosis. RETROPERITONEUM: No retroperitoneal adenopathy, hemorrhage or masses. BOWEL AND PERITONEAL CAVITY: Patient drank oral contrast. No gross evidence of bowel obstruction. N o free intraperitoneal air or fluid. No CT signs of acute diverticulitis. No free intraperitoneal a ir or fluid. APPENDIX: Not identified. No right lower quadrant inflammatory change PELVIS: No mass. No free fluid. Normal bladder. ABDOMINAL WALL: No masses. No hernias. BONES: Shrapnel in the right ischium axial image 98 OTHER: Report called to JULITO Sage IMPRESSION: Large retrocardiac hiatal hernia. Fatty liver. Old shrapnel in the right ischium. Lef t upper pole renal cortical cyst. No acute findings TECHNICAL DOCUMENTATION: JOB ID: [id number] Quality ID # [id number]: Final reports with documentation of one or more dose reduction techniques (e.g., Au tomated exposure control, adjustment of the mA and/or kV according to patient size, use of iterative reconstruction technique) 2010 [employer]- All Rights Reserved Reading location - IP/workstation name: [email or web address]
[2018-05-22] MEDS: HALOPERIDOL LACTATE INJ 5 MG/1 ML VIAL IV PRN (18:00)
[2018-05-22] MEDS ORDERED: HALOPERIDOL LACTATE INJ 5 MG/1 ML VIAL IV ONE (18:00)
[2018-05-22] MEDS ORDERED: (PENDING PHARMACY ID) (Lamotrigine [Lamictal] 150 MG) PO SCH (18:00)
[2018-05-22] MEDS ORDERED: PROMETHAZINE HCL INJ 25 MG/1 ML VIAL IV PRN (18:01)
[2018-05-22] MEDS ORDERED: NORMAL SALINE 100 ML with PANTOPRAZOLE SODIUM 80 MG IV PRN ×2 (18:02)
[2018-05-22] MEDS ORDERED: LORAZEPAM INJ 2 MG/1 ML VIAL IV ONE (19:00)
[2018-05-22] MEDS ORDERED: LIDOCAINE 2% VISCOUS SOLN 20 ML UDCUP PO ONE (19:00)
[2018-05-22] MEDS ORDERED: MAG HYDROX/AL HYDROX/SIMETH SUSP 30 ML UDCUP PO ONE (19:00)
[2018-05-22 22:12] LABS: HEMATOCRIT 46.5 % (37.9-51.0); HEMOGLOBIN 16.4 g/dL (13.5-17.0); MEAN CORPUSCULAR HEMOGLOBIN 32.2 pg (27.0-33.4); MEAN CORPUSCULAR HGB CONC 35.2 g/dL (32.0-36.0); MEAN CORPUSCULAR VOLUME 92 fl (80-97); PLATELET COUNT 143 10^3/uL (150-450); RED BLOOD COUNT 5.08 10^6/uL (4.35-5.55); RED CELL DISTRIBUTION WIDTH 13.6 % (11.5-14.0); WHITE BLOOD COUNT 6.3 10^3/uL (4.0-10.5)
[2018-05-22] MEDS: NORMAL SALINE 1000 ML 1,000 ML with POTASSIUM CHLORIDE 20 MEQ, MAGNESIUM SULFATE 8 MEQ,... IV SCH ×5 (22:25)
[2018-05-22] MEDS: LAMOTRIGINE 100 MG TABLET PO SCH (22:26)
[2018-05-22] MEDS: OLANZAPINE 5 MG TABLET PO SCH (22:29)
[2018-05-23] MEDS: DIAZEPAM 5 MG TABLET PO SCH ×5 (00:10→23:44)
[2018-05-23 03:37] LABS: HEPATITIS A AB IGM Negative (Negative); HEPATITIS B CORE AB IGM Negative (Negative); HEPATITS B SURFACE ANTIGEN Negative (Negative)
[2018-05-23] MEDS: NORMAL SALINE 100 ML with PANTOPRAZOLE SODIUM 80 MG IV PRN ×4 (04:24→15:07)
[2018-05-23 05:01] LABS: HEMATOCRIT 45.8 % (37.9-51.0); MEAN CORPUSCULAR HEMOGLOBIN 32.1 pg (27.0-33.4); MEAN CORPUSCULAR VOLUME 92 fl (80-97); PLATELET COUNT 140 10^3/uL (150-450); RED BLOOD COUNT 4.99 10^6/uL (4.35-5.55); RED CELL DISTRIBUTION WIDTH 13.5 % (11.5-14.0); WHITE BLOOD COUNT 4.7 10^3/uL (4.0-10.5)
[2018-05-23 05:22] LABS: ANION GAP 9 (5-19); BLOOD UREA NITROGEN 4 mg/dL (7-20); CALCIUM 8.4 mg/dL (8.4-10.2); CARBON DIOXIDE 25 mmol/L (22-30); CHLORIDE 106 mmol/L (98-107); GLUCOSE 95 mg/dL (75-110); POTASSIUM 3.6 mmol/L (3.6-5.0); SODIUM 140.2 mmol/L (137-145)
[2018-05-23] MEDS: OLANZAPINE 5 MG TABLET PO SCH ×2 (09:08→22:00)
[2018-05-23] MEDS: LORAZEPAM INJ 2 MG/1 ML VIAL IV PRN ×4 (09:08→20:23)
[2018-05-23] MEDS: PAROXETINE HCL 20 MG TABLET PO SCH (09:09)
[2018-05-23] MEDS: LAMOTRIGINE 100 MG TABLET PO SCH ×2 (09:17→21:59)
[2018-05-23] MEDS: DEXTROSE 5%-NORMAL SALINE 1,000 ML IV PRN (09:36)
[2018-05-23] MEDS ORDERED: (PENDING PHARMACY ID) (Paroxetine Hcl [Paxil] 30 MG) PO SCH (10:00)
[2018-05-23] MEDS ORDERED: (PENDING PHARMACY ID) (Olanzapine [Zyprexa] 10 MG) PO SCH (10:00)
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
[2018-05-23] MEDS: PROMETHAZINE HCL INJ 25 MG/1 ML VIAL IV PRN (17:31)
[2018-05-23] MEDS ORDERED: MAG HYDROX/AL HYDROX/SIMETH SUSP 30 ML UDCUP PO ONE (19:00)
[2018-05-23] MEDS ORDERED: LIDOCAINE 2% VISCOUS SOLN 20 ML UDCUP PO ONE (19:00)
[2018-05-23] MEDS: NORMAL SALINE 1000 ML 1,000 ML with POTASSIUM CHLORIDE 20 MEQ, MAGNESIUM SULFATE 8 MEQ,... IV SCH ×5 (21:59)
[2018-05-24] MEDS: HALOPERIDOL LACTATE INJ 5 MG/1 ML VIAL IV PRN ×2 (00:45→14:29)
[2018-05-24] MEDS: LORAZEPAM INJ 2 MG/1 ML VIAL IV PRN ×3 (01:14→17:56)
[2018-05-24] MEDS: PROMETHAZINE HCL INJ 25 MG/1 ML VIAL IV PRN (01:14)
[2018-05-24] MEDS: NORMAL SALINE 100 ML with PANTOPRAZOLE SODIUM 80 MG IV PRN ×2 (03:34)
[2018-05-24] MEDS: DIAZEPAM 5 MG TABLET PO SCH ×3 (06:41→17:06)
[2018-05-24] MEDS: THIAMINE HCL 100 MG TABLET PO SCH (09:52)
[2018-05-24] MEDS: FOLIC ACID 1 MG TABLET PO SCH (09:53)
[2018-05-24] MEDS: PAROXETINE HCL 20 MG TABLET PO SCH (09:53)
[2018-05-24] MEDS: MULTIVITAMIN TABLET PO SCH (09:53)
[2018-05-24] MEDS: LAMOTRIGINE 100 MG TABLET PO SCH ×2 (09:55→23:18)
[2018-05-24] MEDS: OLANZAPINE 5 MG TABLET PO SCH ×2 (09:56→23:19)
[2018-05-24 12:15] LABS: HEPATITIS C VIRUS ANTIBODY <0.1 s/co ratio (0.0-0.9)
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
[2018-05-24] MEDS: SUCRALFATE SUSP 1 GM/10 ML UDCUP PO SCH ×2 (15:28→23:19)
[2018-05-24] MEDS: LANSOPRAZOLE 30 MG TAB.RAP.DR PO SCH (17:06)
[2018-05-24] MEDS ORDERED: MAG HYDROX/AL HYDROX/SIMETH SUSP 30 ML UDCUP PO PRN (17:46)
[2018-05-24] MEDS ORDERED: HYDRALAZINE HCL INJ/PF 20 MG/1 ML SDV IV PRN (17:48)
--- NOTE | 2018-05-24 18:00 | PSYCHOLOGICAL NOTE ---
Psych Note - Psych Note Psych Note: Met with patient and he reported that he called EMS yesterday. Patient reports that he drank several beers and started to throw up, so he called the ambulance. Patient states that he just got an eviction notice and started drinking. Patient denies wanting to kill himself and that is why he called EMS. Patient has a live in [facility] ([place]) at [phone] and a core drilling supervisor, Amor Lambert ([facility]) at [phone]. His last appointment with his provider was on May 22, 2018. Clinician called GF and she confirmed that patient will be living with her. GF states that he normally consumes about 3 40 ounce bottles of beer a couple times during the week. GF also states that although patient drinks on a regular basis that he has never shared that he wanted to kill himself. Patient receives disability income and that is what he uses to purchase alcohol. Diagnosis: Alcohol Use Disorder, Severe F10.20 Impression/Plan: Patient is not suicidal/homicidal. No intent or plan. Patient was alert and able to answer questions directly. Patient did complain of chest pains and this Clinician alerted the nurse. This Clinician staffed patient with [facility] and determined that he is appropriate for discharge from Psych at this time.However, if any new needs arise please submit a new consult. Clinician confirmed with live in that patient will be discharged home with her.
[2018-05-25] MEDS: DIAZEPAM 5 MG TABLET PO SCH ×4 (00:21→17:12)
[2018-05-25 02:56] LABS: HEMATOCRIT 44.7 % (37.9-51.0); HEMOGLOBIN 15.8 g/dL (13.5-17.0); MEAN CORPUSCULAR HEMOGLOBIN 32.5 pg (27.0-33.4); MEAN CORPUSCULAR HGB CONC 35.3 g/dL (32.0-36.0); MEAN CORPUSCULAR VOLUME 92 fl (80-97); PLATELET COUNT 154 10^3/uL (150-450); RED BLOOD COUNT 4.85 10^6/uL (4.35-5.55); RED CELL DISTRIBUTION WIDTH 13.6 % (11.5-14.0); WHITE BLOOD COUNT 5.5 10^3/uL (4.0-10.5)
[2018-05-25 03:34] LABS: ANION GAP 12 (5-19); BLOOD UREA NITROGEN 8 mg/dL (7-20); CALCIUM 8.7 mg/dL (8.4-10.2); CARBON DIOXIDE 23 mmol/L (22-30); CHLORIDE 107 mmol/L (98-107); GLUCOSE 114 mg/dL (75-110); POTASSIUM 3.5 mmol/L (3.6-5.0)
[2018-05-25] MEDS: LANSOPRAZOLE 30 MG TAB.RAP.DR PO SCH ×2 (06:32→17:12)
[2018-05-25] MEDS: SUCRALFATE SUSP 1 GM/10 ML UDCUP PO SCH ×4 (08:22→21:03)
[2018-05-25] MEDS ORDERED: ONDANSETRON 4 MG TAB.RAPDIS PO PRN (09:18)
[2018-05-25] MEDS ORDERED: LORAZEPAM 1 MG TABLET PO PRN (09:24)
[2018-05-25] MEDS: MULTIVITAMIN TABLET PO SCH (09:44)
[2018-05-25] MEDS: FOLIC ACID 1 MG TABLET PO SCH (09:44)
[2018-05-25] MEDS: THIAMINE HCL 100 MG TABLET PO SCH (09:44)
[2018-05-25] MEDS: PAROXETINE HCL 20 MG TABLET PO SCH (09:44)
[2018-05-25] MEDS: LAMOTRIGINE 100 MG TABLET PO SCH ×2 (09:46→21:03)
[2018-05-25] MEDS: OLANZAPINE 5 MG TABLET PO SCH ×2 (09:47→21:03)
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
[2018-05-25] MEDS ORDERED: MAG HYDROX/AL HYDROX/SIMETH SUSP 30 ML UDCUP PO PRN (11:58)
[2018-05-25] MEDS ORDERED: LORAZEPAM INJ 2 MG/1 ML VIAL IV ONE (12:45)
[2018-05-25] MEDS ORDERED: METOPROLOL TARTRATE PF/INJ 5 MG/5 ML SDV IV ONE (13:04)
--- NOTE | 2018-05-25 18:23 | PSYCHOLOGICAL NOTE ---
Psych Note - Psych Note Psych Note: Patient is getting medication to prevent withdrawals per Nurse Brizuela. Patient is interested in possible placement in Rehab facility. Behavioral Health will evaluate in the morning.
[2018-05-25] MEDS: HALOPERIDOL LACTATE INJ 5 MG/1 ML VIAL IV PRN (21:03)
[2018-05-26] MEDS: DIAZEPAM 5 MG TABLET PO SCH ×2 (00:16→06:00)
[2018-05-26] MEDS: LANSOPRAZOLE 30 MG TAB.RAP.DR PO SCH (06:00)
[2018-05-26 08:15] VITALS: BP 146/96
[2018-05-26] MEDS ORDERED: LORAZEPAM 1 MG TABLET PO PRN (08:25)
[2018-05-26] MEDS: SUCRALFATE SUSP 1 GM/10 ML UDCUP PO SCH (08:45)
[2018-05-26] MEDS: MULTIVITAMIN TABLET PO SCH (09:53)
[2018-05-26] MEDS: THIAMINE HCL 100 MG TABLET PO SCH (09:53)
[2018-05-26] MEDS: FOLIC ACID 1 MG TABLET PO SCH (09:53)
[2018-05-26] MEDS: PAROXETINE HCL 20 MG TABLET PO SCH (09:53)
[2018-05-26] MEDS: LAMOTRIGINE 100 MG TABLET PO SCH (09:54)
[2018-05-26] MEDS: OLANZAPINE 5 MG TABLET PO SCH (09:54)
[2018-05-26] MEDS ORDERED: DIAZEPAM 5 MG TABLET PO SCH (12:00)
--- NOTE | 2018-05-27 12:18 | PDOC DISCHARGE SUMMARY ---
General - Admit/Disc Date/PCP Admission Date/Primary Care Provider: 05/21/18 03:10 MOISES SALOMON MD Discharge Date: 05/26/18 - Discharge Diagnosis (1) Abdominal pain Is this a current diagnosis for this admission?: Yes (2) Alcohol withdrawal Is this a current diagnosis for this admission?: Yes (3) Alcohol abuse Is this a current diagnosis for this admission?: No (4) Seizure disorder Is this a current diagnosis for this admission?: No (5) Upper GI bleed Is this a current diagnosis for this admission?: Yes (6) Bipolar 1 disorder Is this a current diagnosis for this admission?: Yes (7) Chest pain Is this a current diagnosis for this admission?: Yes (8) 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 Is this a current diagnosis for this admission?: Yes (9) Drug-seeking behavior Is this a current diagnosis for this admission?: Yes - Additional Information Resuscitation Status: Full Code Home Medications: Lamotrigine [Lamictal] 150 mg PO BID 05/22/18 Olanzapine [Zyprexa] 10 mg PO DAILY 05/22/18 Olanzapine [Zyprexa] 20 mg PO QHS 05/22/18 Paroxetine HCl [Paxil] 30 mg PO DAILY 05/22/18 History of Present Illness History of Present Illness: WILLIAMS DELEON is a 42 year old male with history of chronic alcoholism and abuse, seizure disorder, history of alcohol withdrawal presents to the emergency room with epigastric pain along with nausea and vomiting. Patient reports multiple episodes of nausea vomiting along with hematemesis in the last 1 week. Patient has been drinking beer every day. Patient reports that he has not been able to keep anything down including his seizure medication Lamictal. Patient also has ran out of his Zyprexa. Patient reports that he needs detox. Patient denies chest pain or shortness of breath or fever or chills or shortness of breath or cough. On arrival to emergency room patient was tachycardic and tachypneic. His laboratory workup showed white count 13,000 and hemoglobin was 19. Alcohol level was 230. Tox was negative. Chest x-ray was unremarkable. Patient had a melanotic stool on rectal exam which was Hemoccult positive. Patient was started on PPI drip. Patient was referred to hospital service for admission. Hospital Course Hospital Course: The patient was admitted while acutely intoxicated with c/o nausea, vomiting, diarrhea, and severe abdominal pain. He reported coffee-ground emesis at home and did have positive occult stools x 2 while inpatient. He was empirically placed on a protonix drip and carafate. The patient's case was discussed with surgery who recommended a contrasted CT of the ABD/Pelvis which was benign other than a retrocardiac hiatal hernia. EGD could be preformed inpatient once acute withdrawal had resolved or as an outpatient depending on labs. His Hgb did trend down over the course of his admission from 19.1 to 15.8. Nursing did not observe hematemesis, hematochezia, or melena at anytime during the patient' s admission. The patient's Bipolar and seizure home medications were resumed. He was placed on scheduled Valium and as needed Ativan for alcohol withdrawal and weaned as HR , BP, and withdrawal symptoms would allow. During the patient's stay, he was repeatedly noncompliant with medications and dietary recommendations. Despite numerous conversations with regard to dietary recommendations for clear liquids and slow advancement as nausea/vomiting/ abdominal pain would allow, the patient would have a friend bring in fast food ( chicken strips, cheeseburgers, etc). After eating, he would report severe abdominal pain which was managed by GI Cocktails or Maalox and the addition of Carafate. The patient would become irate at lack of, in his opinion, appropriate pain control (pt requesting opiate medications). When IV or Opiate medications were declined and dietary restrictions reinforced, the patient would report his intention to leave AMA. Paperwork would be presented, and then he would decide to remain inpatient. This cycle repeated daily. A psychiatric consultation was placed given the patient's concurrent diagnosis of Bipolar. The psych screener cleared him from IVC and was awaiting medication recommendations from Dr. Steel. On 05/26/18, prior to provider's rounds, the patient informed discharge planning that he intended to leave AMA. He was provided the necessary paperwork, which was signed and then left AGAINST MEDICAL ADVICE. Physical Exam Vital Signs: Temp Pulse Resp BP Pulse Ox 98.1 F 93 16 146/96 H 98 05/26/18 08:06 05/26/18 08:06 05/26/18 08:06 05/26/18 08:06 05/26/18 08:06 Intake & Output 05/26/18 05/27/18 05/28/18 06:59 06:59 06:59 Intake Total 1843 Output Total 175 Balance 1668 Weight 98.4 kg Additional comments: The patient left AGAINST MEDICAL ADVICE prior to provide visit/assessment on 05/26. Results Laboratory Results: 05/25/18 02:49 05/25/18 02:49 05/24/18 05/24/18 05/25/18 15:00 20:19 02:49 Troponin I < 0.012 < 0.012 < 0.012 Impressions: Chest X-Ray 05/21/18 01:25 IMPRESSION: No acute cardiopulmonary abnormality 2010 [employer]- All Rights Reserved Abdomen/Pelvis CT 05/22/18 00:00 IMPRESSION: Large retrocardiac hiatal hernia. Fatty liver. Old shrapnel in the right ischium. Left upper pole renal cortical cyst. No acute findings Qualifiers - * PATIENT BEING DISCHARGED WITH ANY OF THE FOLLOWING DIAGNOSIS: No Plan Discharge Plan: The patient left AGAINST MEDICAL ADVICE. Time Spent: Less than 30 Minutes
== END 2018-05-26 11:15 | disposition left against medical advice (07) | DRG 378 ==
LOC: ER 01:04 → EH 03:10 → 3N 07:44
PROVIDERS: ADMIT Internal Medicine; ATTEND Internal Medicine
DX: K92.1 Melena (principal); E87.2 Acidosis; F10.239 Alcohol dependence with withdrawal, unspecified; F10.229 Alcohol dependence with intoxication, unspecified; E86.0 Dehydration; K44.9 Diaphragmatic hernia without obstruction or gangrene; K70.0 Alcoholic fatty liver; K21.9 Gastro-esophageal reflux disease without esophagitis; R10.13 Epigastric pain; Y90.7 Blood alcohol level of 200-239 mg/100 ml; G40.909 Epilepsy, unspecified, not intractable, without status epilepticus; F31.9 Bipolar disorder, unspecified; R07.9 Chest pain, unspecified; T42.6X6A Underdosing of other antiepileptic and sedative-hypnotic drugs, initial encounter; Z90.49 Acquired absence of other specified parts of digestive tract; Z87.891 Personal history of nicotine dependence; Z76.5 Malingerer [conscious simulation]; Z79.899 Other long term (current) drug therapy; Z91.19 Patient's noncompliance with other medical treatment and regimen; Z87.828 Personal history of other (healed) physical injury and trauma
CPT/HCPCS: 36415; 71045; 74177; 80048; 80053; 80074; 80307; 82150; 82272; 83690; 83735; 84484; 85025; 85027; 86850; 86900; 86901; 87045; 87205; 87493; 89055; 93005; 93010; 96374; 96375; 99285; J0360; J1630; J2060; J2270; J2405; J2550; J2765; J3411; J3475; J3480; J3490; J7030; J7050; S0164

== ENCOUNTER 2018-05-28 22:06 | Emergency (ER) | payer MEDICAID ==
[2018-05-28] MEDS ORDERED: LORAZEPAM INJ 2 MG/1 ML VIAL IV ONE (22:39)
[2018-05-28] MEDS ORDERED: LIDOCAINE 2% VISCOUS SOLN 20 ML UDCUP PO ONE (22:39)
[2018-05-28] MEDS ORDERED: METOCLOPRAMIDE HCL ORAL SOLN 10 MG/10 ML UDCUP PO ONE (22:39)
[2018-05-28] MEDS ORDERED: PANTOPRAZOLE SODIUM 40 MG VIAL IV ONE (22:39)
[2018-05-28] MEDS ORDERED: MAG HYDROX/AL HYDROX/SIMETH SUSP 30 ML UDCUP PO ONE (22:39)
[2018-05-28] MEDS ORDERED: PANTOPRAZOLE SODIUM 40 MG VIAL IV PRN (22:39)
[2018-05-28 22:52] LABS: ABSOLUTE BASOPHILS # (AUTO) 0.1 10^3/uL (0.0-0.2); ABSOLUTE EOSINOPHILS # (AUTO) 0.2 10^3/uL (0.0-0.6); ABSOLUTE MONOCYTES (AUTO) 1.2 10^3/uL (0.1-1.4); ABSOLUTE NEUT (AUTO) 2.4 10^3/uL (1.7-8.2); EOSINOPHILS % (AUTO) 2.6 % (0-6); HEMATOCRIT 43.4 % (37.9-51.0); HEMOGLOBIN 15.3 g/dL (13.5-17.0); LYMPHOCYTES % (AUTO) 34.9 % (13-45); MEAN CORPUSCULAR HEMOGLOBIN 32.3 pg (27.0-33.4); MEAN CORPUSCULAR HGB CONC 35.2 g/dL (32.0-36.0); MEAN CORPUSCULAR VOLUME 92 fl (80-97); MONOCYTES % (AUTO) 19.8 % (3-13); PLATELET COUNT 336 10^3/uL (150-450); RED BLOOD COUNT 4.73 10^6/uL (4.35-5.55); SEGMENTED NEUTROPHILS % (AUTO) 41.7 % (42-78); TOTAL CELLS COUNTED % (AUTO) 100 %; WHITE BLOOD COUNT 5.8 10^3/uL (4.0-10.5)
[2018-05-28 22:59] LABS: INTERNATIONAL RATION (INR) 0.81; PROTHROMBIN TIME 11.6 SEC (11.4-15.4)
[2018-05-28 23:00] LABS: PARTIAL THROMBOPLASTIN TIME 25.5 SEC (23.5-35.8)
[2018-05-28] MEDS ORDERED: PROMETHAZINE HCL INJ 25 MG/1 ML VIAL IM ONE (23:07)
[2018-05-28] MEDS ORDERED: LAMOTRIGINE 100 MG TABLET PO ONE (23:07)
[2018-05-28 23:17] LABS: ALANINE AMINOTRANSFERASE 181 U/L (21-72); ALBUMIN 3.5 g/dL (3.5-5.0); ALCOHOL 165 mg/dL (NONE DETECTED); ALKALINE PHOSPHATASE 110 U/L (38-126); ANION GAP 15 (5-19); ASPARTATE AMINO TRANSFERASE 146 U/L (17-59); BILIRUBIN,DIRECT 0.4 mg/dL (0.0-0.4); BILIRUBIN,TOTAL 0.5 mg/dL (0.2-1.3); BLOOD UREA NITROGEN 5 mg/dL (7-20); CARBON DIOXIDE 23 mmol/L (22-30); CHLORIDE 107 mmol/L (98-107); GLUCOSE 115 mg/dL (75-110); LIPASE 186.7 U/L (23-300); SODIUM 144.6 mmol/L (137-145); TOTAL PROTEIN 6.3 g/dL (6.3-8.2)
[2018-05-28] MEDS ORDERED: HYDROMORPHONE HCL INJ/PF 2 MG/ML AMPULE IV ONE (23:28)
--- NOTE | 2018-05-29 00:50 | RADIOLOGY REPORT (SQ) ---
EXAM DESCRIPTION: XR CHEST 1 VIEW COMPLETED DATE/TME: 05/29/2018 00:27 CLINICAL HISTORY: 42 years, Male, abdominal pain. Get entire diaphragm COMPARISON: 05/21/2018 NUMBER OF VIEWS: One TECHNIQUE: Frontal view chest LIMITATIONS: None. FINDINGS: Hemidiaphragms appear smooth without pleural fluid. Overlying monitoring devices are present. Cardiomegaly mediastinal silhouette is within normal limits. Old healed clavicular fracture on the right. No pneumothorax or evidence of consolidation. IMPRESSION: No acute process noted 2010 [employer]- All Rights Reserved
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
[2018-05-29 06:58] VITALS: BP 140/97
== END 2018-05-29 05:11 | disposition left against medical advice (07) ==
LOC: ER 22:06 → EH 05-29 01:16 → UNDOADMIN 05-29 01:16 → ER 05-29 04:58
DX: G40.909 Epilepsy, unspecified, not intractable, without status epilepticus (principal); T42.6X6A Underdosing of other antiepileptic and sedative-hypnotic drugs, initial encounter; Z91.14 Patient's other noncompliance with medication regimen; K29.20 Alcoholic gastritis without bleeding; F10.10 Alcohol abuse, uncomplicated; R11.2 Nausea with vomiting, unspecified; R10.13 Epigastric pain; R19.5 Other fecal abnormalities; F17.200 Nicotine dependence, unspecified, uncomplicated; F12.10 Cannabis abuse, uncomplicated; Z88.8 Allergy status to other drugs, medicaments and biological substances
CPT/HCPCS: 86900; 86901; 36415; 86850; 80307; 83690; 85025; 85610; 85730; 82272; 80053; 71045; J3490 ×4; J1170; J2060; S0164 ×2; J2550

== ENCOUNTER 2018-06-04 04:04 | Emergency (ER) | payer MEDICAID ==
[2018-06-04] MEDS ORDERED: LORAZEPAM INJ 2 MG/1 ML VIAL ONE (04:15)
[2018-06-04] MEDS ORDERED: LORAZEPAM INJ 2 MG/1 ML VIAL IV ONE (04:17)
[2018-06-04] MEDS ORDERED: LAMOTRIGINE 100 MG TABLET PO ONE (04:18)
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
[2018-06-04 05:07] LABS: ABSOLUTE BASOPHILS # (AUTO) 0.1 10^3/uL (0.0-0.2); ABSOLUTE EOSINOPHILS # (AUTO) 0.1 10^3/uL (0.0-0.6); ABSOLUTE LYMPHOCYTES (AUTO) 1.2 10^3/uL (0.5-4.7); ABSOLUTE MONOCYTES (AUTO) 0.8 10^3/uL (0.1-1.4); ABSOLUTE NEUT (AUTO) 6.9 10^3/uL (1.7-8.2); BASOPHILS % (AUTO) 0.8 % (0-2); EOSINOPHILS % (AUTO) 1.1 % (0-6); HEMATOCRIT 48.4 % (37.9-51.0); HEMOGLOBIN 16.8 g/dL (13.5-17.0); LYMPHOCYTES % (AUTO) 13.7 % (13-45); MEAN CORPUSCULAR HEMOGLOBIN 32.3 pg (27.0-33.4); MEAN CORPUSCULAR HGB CONC 34.7 g/dL (32.0-36.0); MEAN CORPUSCULAR VOLUME 93 fl (80-97); MONOCYTES % (AUTO) 8.5 % (3-13); PLATELET COUNT 466 10^3/uL (150-450); RED CELL DISTRIBUTION WIDTH 14.3 % (11.5-14.0); SEGMENTED NEUTROPHILS % (AUTO) 75.9 % (42-78); TOTAL CELLS COUNTED % (AUTO) 100 %; WHITE BLOOD COUNT 9.1 10^3/uL (4.0-10.5)
[2018-06-04 05:26] LABS: ALCOHOL 79 mg/dL (NONE DETECTED); ANION GAP 19 (5-19); BLOOD UREA NITROGEN 2 mg/dL (7-20); CALCIUM 9.3 mg/dL (8.4-10.2); CARBON DIOXIDE 19 mmol/L (22-30); CHLORIDE 105 mmol/L (98-107); GLUCOSE 105 mg/dL (75-110); POTASSIUM 3.5 mmol/L (3.6-5.0); SODIUM 142.7 mmol/L (137-145)
[2018-06-04] MEDS ORDERED: NORMAL SALINE 1000 ML 1,000 ML IV ONE (05:48)
[2018-06-04] MEDS ORDERED: MORPHINE SULFATE 10 MG/ML INJ IV ONE (08:28)
[2018-06-04] MEDS ORDERED: LORAZEPAM 1 MG TABLET PO ONE (08:29)
[2018-06-04 09:56] VITALS: BP 132/93
== END 2018-06-04 10:40 | disposition home or self-care (01) ==
LOC: ER 04:04
DX: G40.909 Epilepsy, unspecified, not intractable, without status epilepticus (principal); F10.10 Alcohol abuse, uncomplicated; Z79.899 Other long term (current) drug therapy; F17.200 Nicotine dependence, unspecified, uncomplicated
CPT/HCPCS: 99284; 96361; 96374; 96375; 36415; 80307; 83735; 85025; 80048; J2270; J2060; J7030; J3490

== ENCOUNTER 2018-06-09 13:19 | Emergency (ER) | payer MEDICAID ==
[2018-06-09 14:11] LABS: ABSOLUTE EOSINOPHILS # (AUTO) 0.1 10^3/uL (0.0-0.6); ABSOLUTE LYMPHOCYTES (AUTO) 0.9 10^3/uL (0.5-4.7); ABSOLUTE MONOCYTES (AUTO) 0.7 10^3/uL (0.1-1.4); ABSOLUTE NEUT (AUTO) 4.8 10^3/uL (1.7-8.2); BASOPHILS % (AUTO) 0.4 % (0-2); HEMATOCRIT 50.9 % (37.9-51.0); HEMOGLOBIN 17.7 g/dL (13.5-17.0); LYMPHOCYTES % (AUTO) 14.3 % (13-45); MEAN CORPUSCULAR HEMOGLOBIN 32.3 pg (27.0-33.4); MEAN CORPUSCULAR HGB CONC 34.8 g/dL (32.0-36.0); MEAN CORPUSCULAR VOLUME 93 fl (80-97); MONOCYTES % (AUTO) 11.1 % (3-13); PLATELET COUNT 336 10^3/uL (150-450); SEGMENTED NEUTROPHILS % (AUTO) 73.2 % (42-78); TOTAL CELLS COUNTED % (AUTO) 100 %; WHITE BLOOD COUNT 6.5 10^3/uL (4.0-10.5)
[2018-06-09 14:22] LABS: ALANINE AMINOTRANSFERASE 41 U/L (21-72); ALBUMIN 4.5 g/dL (3.5-5.0); ALKALINE PHOSPHATASE 122 U/L (38-126); ANION GAP 17 (5-19); ASPARTATE AMINO TRANSFERASE 55 U/L (17-59); BILIRUBIN,DIRECT 0.3 mg/dL (0.0-0.4); BLOOD UREA NITROGEN 6 mg/dL (7-20); CALCIUM 9.5 mg/dL (8.4-10.2); CARBON DIOXIDE 20 mmol/L (22-30); CHLORIDE 107 mmol/L (98-107); CREATINE KINASE 122 U/L (55-170); GLUCOSE 96 mg/dL (75-110); POTASSIUM 4.1 mmol/L (3.6-5.0); SODIUM 143.8 mmol/L (137-145); TOTAL PROTEIN 8.2 g/dL (6.3-8.2)
[2018-06-09] MEDS ORDERED: LEVETIRACETAM 1500 MG/NACL-ISO 1,500 MG/100 ML RTUPB IV ONE (14:32)
[2018-06-09] MEDS ORDERED: LORAZEPAM INJ 2 MG/1 ML VIAL IV ONE (14:32)
[2018-06-09] MEDS ORDERED: NORMAL SALINE 1000 ML 1,000 ML IV ONE ×2 (14:33→15:40)
[2018-06-09] MEDS ORDERED: THIAMINE HCL 100 MG, FOLIC ACID 1 MG in NORMAL SALINE 250 ML IV ONE (14:37)
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
--- NOTE | 2018-06-09 14:56 | RADIOLOGY REPORT (SQ) ---
EXAM DESCRIPTION: CHEST 2 VIEWS COMPLETED DATE/TIME: 06/09/2018 2:47 pm REASON FOR STUDY: cough COMPARISON: 05/29/2018 EXAM PARAMETERS: NUMBER OF VIEWS: two views TECHNIQUE: Digital Frontal and Lateral radiographic views of the chest acquired. RADIATION DOSE: NA LIMITATIONS: none FINDINGS: LUNGS AND PLEURA: No opacities, masses or pneumothorax. No pleural effusion. MEDIASTINUM AND HILAR STRUCTURES: No masses or contour abnormalities. HEART AND VASCULAR STRUCTURES: Heart normal size. No evidence for failure. BONES: Old remote fracture distal right clavicle. HARDWARE: None in the chest. OTHER: No other significant finding. IMPRESSION: 1 No significant interval changes since the prior examination dated 05/29/2018. No acute finding. TECHNICAL DOCUMENTATION: JOB ID: [id number] [employer]- All Rights Reserved Reading location - IP/workstation name: [email or web address]
[2018-06-09] MEDS ORDERED: LORAZEPAM 1 MG TABLET PO SCH (16:30)
[2018-06-09 16:50] VITALS: BP 137/100
--- NOTE | 2018-06-09 22:41 | EKG REPORT ---
SEVERITY:- BORDERLINE ECG - SINUS TACHYCARDIA PROBABLE LEFT ATRIAL ABNORMALITY MARKEDLY POSTERIOR QRS AXIS : Confirmed by: Torrie Campbell 09-Jun-2018 22:40:29
== END 2018-06-09 17:20 | disposition home or self-care (01) ==
LOC: ER 13:19
DX: G40.909 Epilepsy, unspecified, not intractable, without status epilepticus (principal); T42.6X6A Underdosing of other antiepileptic and sedative-hypnotic drugs, initial encounter; Z91.128 Patient's intentional underdosing of medication regimen for other reason; Z91.14 Patient's other noncompliance with medication regimen; F31.9 Bipolar disorder, unspecified; F41.9 Anxiety disorder, unspecified; R00.0 Tachycardia, unspecified; R05 Cough; R06.02 Shortness of breath; R07.81 Pleurodynia; F17.210 Nicotine dependence, cigarettes, uncomplicated; Z71.6 Tobacco abuse counseling; Z88.8 Allergy status to other drugs, medicaments and biological substances; Z72.89 Other problems related to lifestyle
CPT/HCPCS: 99406; 99285; 96375; 96365; 96367; 36415; 82550; 85025; 80053; 84484; 71046; 93005; 93010; J3490; J2060; J3411; J7030; J7050; J1953

== ENCOUNTER 2018-06-11 02:14 | Emergency (ER) | payer MEDICAID ==
[2018-06-11] MEDS ORDERED: LORAZEPAM INJ 2 MG/1 ML VIAL IV ONE (02:43)
[2018-06-11] MEDS ORDERED: NORMAL SALINE 1000 ML 1,000 ML IV ONE (02:43)
[2018-06-11 02:53] LABS: ABSOLUTE EOSINOPHILS # (AUTO) 0.1 10^3/uL (0.0-0.6); ABSOLUTE LYMPHOCYTES (AUTO) 1.6 10^3/uL (0.5-4.7); ABSOLUTE MONOCYTES (AUTO) 0.8 10^3/uL (0.1-1.4); ABSOLUTE NEUT (AUTO) 3.4 10^3/uL (1.7-8.2); BASOPHILS % (AUTO) 0.5 % (0-2); EOSINOPHILS % (AUTO) 2.3 % (0-6); HEMATOCRIT 52.6 % (37.9-51.0); HEMOGLOBIN 17.8 g/dL (13.5-17.0); LYMPHOCYTES % (AUTO) 27.4 % (13-45); MEAN CORPUSCULAR HEMOGLOBIN 31.5 pg (27.0-33.4); MEAN CORPUSCULAR HGB CONC 33.8 g/dL (32.0-36.0); MEAN CORPUSCULAR VOLUME 93 fl (80-97); MONOCYTES % (AUTO) 13.1 % (3-13); PLATELET COUNT 330 10^3/uL (150-450); RED BLOOD COUNT 5.65 10^6/uL (4.35-5.55); SEGMENTED NEUTROPHILS % (AUTO) 56.7 % (42-78); TOTAL CELLS COUNTED % (AUTO) 100 %
[2018-06-11 03:01] LABS: INTERNATIONAL RATION (INR) 0.98; PROTHROMBIN TIME 13.5 SEC (11.4-15.4)
[2018-06-11 03:02] LABS: PARTIAL THROMBOPLASTIN TIME 28.3 SEC (23.5-35.8)
[2018-06-11 03:04] LABS: ALANINE AMINOTRANSFERASE 41 U/L (21-72); ALBUMIN 4.6 g/dL (3.5-5.0); ALKALINE PHOSPHATASE 105 U/L (38-126); ASPARTATE AMINO TRANSFERASE 47 U/L (17-59); BILIRUBIN,DIRECT 0.3 mg/dL (0.0-0.4); BLOOD UREA NITROGEN 4 mg/dL (7-20); CALCIUM 9.7 mg/dL (8.4-10.2); CARBON DIOXIDE 15 mmol/L (22-30); CHLORIDE 109 mmol/L (98-107); GLUCOSE 90 mg/dL (75-110); POTASSIUM 3.9 mmol/L (3.6-5.0); SODIUM 145.5 mmol/L (137-145); TOTAL PROTEIN 7.8 g/dL (6.3-8.2)
[2018-06-11 03:16] LABS: ANION GAP 22 (5-19)
--- NOTE | 2018-06-11 03:32 | RADIOLOGY REPORT (SQ) ---
EXAM DESCRIPTION: XR CHEST 1 VIEW COMPLETED DATE/TME: 06/11/2018 02:42 CLINICAL HISTORY: seizure COMPARISON: 06/09/2018 FINDINGS: Single frontal view of the chest. The cardiomediastinal silhouette has normal size and contour. No consolidation, pneumothorax, or pleural effusion. Leads overlie the chest. No displaced rib fractures identified. Upper abdominal soft tissues are unremarkable. IMPRESSION: 1. No acute pulmonary process identified.
[2018-06-11 04:05] LABS: APPEARANCE,URINE CLEAR; BILIRUBIN,URINE NEGATIVE (NEGATIVE); COLOR,URINE YELLOW; GLUCOSE, URINE NEGATIVE (NEGATIVE); KETONES,URINE TRACE mg/dL (NEGATIVE); LEUKOCYTE ESTERASE,URINE NEGATIVE (NEGATIVE); NITRITE,URINE NEGATIVE (NEGATIVE); PROTEIN,URINE NEGATIVE (NEGATIVE); URINE SPECIFIC GRAVITY 1.005; UROBILINOGEN,URINE NEGATIVE mg/dL (<2.0)
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
[2018-06-11 04:11] LABS: URINE BARBITURATES SCREEN NEGATIVE; URINE BENZODIAZEPINES SCREEN NEGATIVE; URINE COCAINE SCREEN NEGATIVE; URINE MARIJUANA (THC) SCREEN NEGATIVE; URINE METHADONE SCREEN NEGATIVE; URINE PHENCYCLIDINE SCREEN NEGATIVE
--- NOTE | 2018-06-11 04:26 | RADIOLOGY REPORT (SQ) ---
EXAM DESCRIPTION: CT HEAD WITHOUT IV CONTRAST COMPLETED DATE/TME: 06/11/2018 02:39 CLINICAL HISTORY: seizure COMPARISON: None available TECHNIQUE: Axial CT of the head obtained from the skull apex to the skull base without contrast. FINDINGS: No acute intracranial hemorrhage identified. No mass, mass effect, shift of the midline, abnormal extra-axial fluid collection or CT evidence of acute ischemic change identified. The ventricular system is unremarkable. No acute abnormalities of the supratentorial white matter, basal ganglia, cerebellum, or brainstem. The visualized paranasal sinuses and the mastoids are clear. No skull fracture identified. Visualized orbits and globes are unremarkable. DLP:1056.39 mGy-cm IMPRESSION: 1. No acute intracranial abnormality identified. This exam was performed according to our departmental dose-optimization program, which includes automated exposure control, adjustment of the mA and/or kV according to patient size and/or use of iterative reconstruction technique.
--- NOTE | 2018-06-11 04:30 | RADIOLOGY REPORT (SQ) ---
EXAM DESCRIPTION: CT CERVICAL SPINE WITHOUT IV CONTRAST COMPLETED DATE/TME: 06/11/2018 02:41 CLINICAL HISTORY: fall/pain COMPARISON: None available TECHNIQUE: Axial CT of the cervical spine obtained without contrast. FINDINGS: Straightening of the cervical lordosis. The atlantoaxial, atlantodental, and occipitoatlantal intervals are preserved. No acute fracture or subluxation identified. Vertebral body height preserved. Prevertebral soft tissues are unremarkable. Mild endplate spondylosis. No definite central canal nor osseous neural foraminal narrowing Visualized skull base is intact. No fracture of the visualized facial bones. Visualized mastoid air cells and paranasal sinuses are well aerated. Visualized thyroid is unremarkable. No cervical lymphadenopathy. No pneumothorax in the visualized lung apices. DLP:437.66 mGy-cm IMPRESSION: 1. No acute fracture or subluxation of the cervical spine. 2. Mild degenerative change of the cervical spine. This exam was performed according to our departmental dose-optimization program, which includes automated exposure control, adjustment of the mA and/or kV according to patient size and/or use of iterative reconstruction technique.
[2018-06-11] MEDS ORDERED: LORAZEPAM INJ 2 MG/1 ML VIAL ONE ×3 (04:35→04:40)
[2018-06-11] MEDS ORDERED: LEVETIRACETAM 1000 MG/NACL-ISO 1,000 MG/100 ML RTUPB IV ONE (04:45)
--- NOTE | 2018-06-11 08:38 | EKG REPORT ---
SEVERITY:- BORDERLINE ECG - SINUS RHYTHM PROBABLE LEFT ATRIAL ABNORMALITY LEFT AXIS DEVIATION : Confirmed by: Torrie Campbell 11-Jun-2018 08:37:42
[2018-06-11 09:06] VITALS: BP 103/72
[2018-06-12] MEDS ORDERED: LORAZEPAM INJ 2 MG/1 ML VIAL IV ONE (23:15)
== END 2018-06-11 09:06 | disposition home or self-care (01) ==
LOC: ER 02:14
DX: G40.909 Epilepsy, unspecified, not intractable, without status epilepticus (principal)
CPT/HCPCS: 93005; 96376; 99285; 96361; 51701; 96374; 96375; 36415; 85025; 85610; 85730; 80053; 81001; 80307; 71045; 70450; 72125; 93010; L0120; J2060; J7030; J1953

== ENCOUNTER 2018-06-16 13:42 | Emergency (ER) | payer MEDICAID ==
[2018-06-16] MEDS ORDERED: NORMAL SALINE 1000 ML 1,000 ML IV ONE ×2 (14:12→14:19)
[2018-06-16 15:09] LABS: ABSOLUTE EOSINOPHILS # (AUTO) 0.1 10^3/uL (0.0-0.6); ABSOLUTE LYMPHOCYTES (AUTO) 1.7 10^3/uL (0.5-4.7); ABSOLUTE MONOCYTES (AUTO) 0.6 10^3/uL (0.1-1.4); ABSOLUTE NEUT (AUTO) 3.3 10^3/uL (1.7-8.2); BASOPHILS % (AUTO) 0.5 % (0-2); EOSINOPHILS % (AUTO) 1.9 % (0-6); HEMATOCRIT 50.9 % (37.9-51.0); HEMOGLOBIN 17.4 g/dL (13.5-17.0); LYMPHOCYTES % (AUTO) 29.3 % (13-45); MEAN CORPUSCULAR HEMOGLOBIN 31.7 pg (27.0-33.4); MEAN CORPUSCULAR HGB CONC 34.2 g/dL (32.0-36.0); MEAN CORPUSCULAR VOLUME 93 fl (80-97); MONOCYTES % (AUTO) 11.1 % (3-13); PLATELET COUNT 265 10^3/uL (150-450); RED BLOOD COUNT 5.49 10^6/uL (4.35-5.55); RED CELL DISTRIBUTION WIDTH 13.8 % (11.5-14.0); SEGMENTED NEUTROPHILS % (AUTO) 57.2 % (42-78); TOTAL CELLS COUNTED % (AUTO) 100 %; WHITE BLOOD COUNT 5.7 10^3/uL (4.0-10.5)
--- NOTE | 2018-06-16 15:14 | RADIOLOGY REPORT (SQ) ---
EXAM DESCRIPTION: CHEST 2 VIEWS COMPLETED DATE/TIME: 06/16/2018 2:56 pm REASON FOR STUDY: sob COMPARISON: 06/09/2018 EXAM PARAMETERS: NUMBER OF VIEWS: two views TECHNIQUE: Digital Frontal and Lateral radiographic views of the chest acquired. RADIATION DOSE: NA LIMITATIONS: none FINDINGS: LUNGS AND PLEURA: No opacities, masses or pneumothorax. No pleural effusion. MEDIASTINUM AND HILAR STRUCTURES: No masses or contour abnormalities. HEART AND VASCULAR STRUCTURES: Heart normal size. No evidence for failure. BONES: No acute findings. HARDWARE: None in the chest. OTHER: No other significant finding. IMPRESSION: NO ACUTE RADIOGRAPHIC FINDING IN THE CHEST. TECHNICAL DOCUMENTATION: JOB ID: [id number] [employer]- All Rights Reserved Reading location - IP/workstation name: [email or web address]
[2018-06-16 15:38] LABS: ALANINE AMINOTRANSFERASE 55 U/L (21-72); ALBUMIN 4.2 g/dL (3.5-5.0); ALCOHOL 222 mg/dL (NONE DETECTED); ALKALINE PHOSPHATASE 93 U/L (38-126); ANION GAP 18 (5-19); ASPARTATE AMINO TRANSFERASE 57 U/L (17-59); BILIRUBIN,DIRECT 0.3 mg/dL (0.0-0.4); BILIRUBIN,TOTAL 0.5 mg/dL (0.2-1.3); BLOOD UREA NITROGEN 2 mg/dL (7-20); CALCIUM 9.5 mg/dL (8.4-10.2); CARBON DIOXIDE 20 mmol/L (22-30); CHLORIDE 109 mmol/L (98-107); CREATINE KINASE 73 U/L (55-170); GLUCOSE 98 mg/dL (75-110); LIPASE 136.4 U/L (23-300); POTASSIUM 4.1 mmol/L (3.6-5.0); SALICYLATE < 1.0 mg/dL (2.0-20.0); SODIUM 147.2 mmol/L (137-145); TOTAL PROTEIN 7.5 g/dL (6.3-8.2)
[2018-06-16 16:11] LABS: URINE AMPHETAMINES SCREEN NEGATIVE; URINE BARBITURATES SCREEN NEGATIVE; URINE BENZODIAZEPINES SCREEN NEGATIVE; URINE COCAINE SCREEN NEGATIVE; URINE MARIJUANA (THC) SCREEN NEGATIVE; URINE METHADONE SCREEN NEGATIVE; URINE PHENCYCLIDINE SCREEN NEGATIVE
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
[2018-06-16 17:38] VITALS: BP 140/90
--- NOTE | 2018-06-16 19:28 | EKG REPORT ---
SEVERITY:- ABNORMAL ECG - SINUS RHYTHM LEFT AXIS DEVIATION ABNRM R PROG, CONSIDER ASMI OR LEAD PLACEMENT : Confirmed by: Juve Arteaga MD 16-Jun-2018 19:27:17
== END 2018-06-16 17:37 | disposition home or self-care (01) ==
LOC: ER 13:42
DX: F10.10 Alcohol abuse, uncomplicated (principal); E86.0 Dehydration; R55 Syncope and collapse; F17.200 Nicotine dependence, unspecified, uncomplicated
CPT/HCPCS: 93005; 99284; 96360; 96361; 36415; 80307 ×3; 82550; 83690; 85025; 80053; 71046; 93010; J7030